=== PATIENT | female | born 1975 | race Caucasian/White ===

== ENCOUNTER 2019-05-01 12:08 | Inpatient (IN) ==
[2019-05-01 12:48] LABS: Immature Granulocytes % 0.4 % (0-4)
[2019-05-01 12:50] LABS: Basophils % 0.3 %; Hematocrit 41.5 % (35.3-44.9); Hemoglobin 13.3 g/dL (11.5-15.4); Immature Platelets 10.2 % (1.1-6.1); Lymphocytes # 0.8 K/mcL (0.6-4.6); Mean Corpuscular Hemoglobin 29.8 pg (28.0-33.3); Mean Platelet Volume 9.9 fL (9.4-12.4); Monocytes % 10.1 %; Neutrophils # 7.8 K/mcL (1.6-8.9); Platelet Count 72 K/mcL (140-400); Red Blood Count 4.46 M/mcL (3.82-4.97); Segmented Neutrophils % 81.2 %; White Blood Count 9.6 K/mcL (4.3-11.1)
[2019-05-01 13:08] LABS: BUN/Creatinine Ratio 9 (6-26); Blood Urea Nitrogen 6 mg/dL (6-20); Calcium 9.5 mg/dL (8.6-10.3); Carbon Dioxide 21 mEq/L (23-29); Chloride 96 mEq/L (98-107); Glucose 108 mg/dL (70-105); Osmolality,Calculated 268 (280-300); Potassium 3.4 mEq/L (3.5-5.1); Sodium 130 mEq/L (136-145); Troponin I < 0.03 ng/mL (< 0.04); eGFR For African Americans > 60 (> 60); eGFR For Non-African Americans > 60 (> 60)
[2019-05-01 13:11] LABS: Bilirubin,Urine Small (Negative); Blood,Urine Trace (Negative); Clarity,Urine Cloudy (Clear); Color,Urine Dark Yellow (Yellow); Glucose,Urine (UA) Normal (Normal); Ketones,Urine >=160 mg/dL (Negative); Leukocyte Esterase,Urine Trace (Negative); Nitrite,Urine Negative (Negative); PH,Urine 5.5 pH Units (5.0-8.0); Protein,Urine 100 mg/dL (Neg-Trace); Specific Gravity,Urine 1.026 (1.010-1.025); Urobilinogen,Urine Normal (Normal)
[2019-05-01 13:15] LABS: Bacteria,Urine Few per hpf (None-Few); Hyaline Casts,Urine None Seen per lpf (None-Few); RBC,Urine 0-3 per hpf (0-3); Squamous Epithelial Cell,Urine Many per lpf (None-Few)
[2019-05-01] MEDS ORDERED: Isovue-370 500 ML BOTTLE IVP ONE (13:15)
[2019-05-01 13:16] LABS: Platelet Estimate Decreased (Normal)
[2019-05-01] MEDS ORDERED: 0.9 % Sodium Chloride 1,000 ML IVC ONE (13:17)
[2019-05-01] MEDS ORDERED: *HR* FentaNYL (PF) 100 MCG/2 ML VIAL IVP ONE ×2 (13:17→14:07)
[2019-05-01 13:37] LABS: Creatine Kinase 365 Units/L (30-223)
[2019-05-01] MEDS ORDERED: Ondansetron 4 MG/2 ML VIAL IVP ONE (14:07)
--- NOTE | 2019-05-01 15:08 | Cardiothoracic Consult Note ---
Date of Encounter: 05/01/19 Time of Encounter: 15:06 Assessment and Plan (1) Pneumothorax on right Current Visit: Yes Status: Acute The assessment and plan as outlined above was discussed with the patient and/or family members who expressed understanding and agreement. All questions were answered. A chest tube will be inserted in the emergency room and the patient will be admitted. We will follow and discontinue the chest tube at the appropriate giovanna e. - History of Present Illness History of present illness: Ms. Mariano is a 43 year old female The patient is a 43-year-old female who fell this morning and sustained a brief loss of consciousness. Workup in the emergency room revealed a CT scan of the head and neck that revealed no injuries. Chest x-ray and CT scan of the chest revealed a moderate right pneumothorax with a right posterior sixth rib fracture. She has no other health problems. No known allergies. Her only medications include occasional Benadryl. She lives with her father and her f riend. She smokes 1-1/2 packs of cigarettes per day AGAINST MEDICAL ADVICE. Rarely drinks alcohol. Review of systems is otherwise negative. Past Med Surg Social Fam HX - Past Medical History Medical history: GERD Psychiatric history: anxiety, depression - Past Surgical History Additional surgical history: tubal, 4 mental plates left elbow, breast augumentation - Social History Smoking Status: Current every day smoker Smokeless Tobacco Status: No Alcohol use: heavy, recent Drug use: none Medications and Allergies Ondansetron ODT [Zofran ODT] 4 mg SL Q6HR PRN #12 tab.rapdis 11/25/18 [Rx] Allergy/AdvReac Type Severity Reaction Status Date / Time No Known Allergies Allergy Verified 05/18/18 16:48 All Systems Review: The remainder of the systems were reviewed and are negative Physical Examination Vital Signs, Last 4 Hours Temp Pulse Resp BP Pulse Ox 05/01/19 14:05 104 18 143/94 100 05/01/19 12:33 98.3 F 114 16 156/95 97 05/01/19 12:09 98.3 F 114 16 156/95 97 Lungs are clear to percussion and auscultation. Heart is in a regular rate and rhythm. General: Conversant HEENT: Atraumatic, Normocephaly Neck: No JVD, Normal carotid pulses Cardiac: Reg Rate and Rhythm, Normal S1 and S2, No Murmur Lungs: Normal Breath Sounds Neuro: Alert and responsive, No focal deficits noted, Cranial nerves intact, Motor nerves intact, Sensory nerves intact Abdomen: Soft, Non-tender Skin: No rashes noted on visualized skin Extremities: No Clubbing, No Cyanosis, No Edema, Normal Pulses Results 05/01/19 12:25 05/01/19 12:25 Lab Results, Last 24 hours 05/01/19 05/01/19 12:25 12:25 WBC 9.6 Hgb 13.3 Hct 41.5 Plt Count 72 L Sodium 130 L Potassium 3.4 L Chloride 96 L Carbon Dioxide 21 L BUN 6 Creatinine 0.66 Glucose 108 H Calcium 9.5 Troponin I < 0.03 Consult Discharge Plan - Plan Referrals: Vane Clemons CNP [Primary Care Provider] -
--- NOTE | 2019-05-01 15:42 | Emergency Department Note ---
Disposition Clinical Impression: Pneumothorax, Elevated CPK, Hyponatremia Disposition: Admitted As Inpatient Condition: Fair Referrals: Vane Clemons CNP [Primary Care Provider] - Forms: ED Satisfaction Letter Time of Disposition: 15:30 General Adult HPI - General Chief complaint: ED Fall Stated complaint: fall, head injury Time Seen by Provider: 05/01/19 12:17 Source: patient, family Mode of arrival: ambulatory Limitations: no limitations Nursing Notes Reviewed: Yes Vital Signs Reviewed: Yes - History of Present Illness HPI Narrative: 43-year-old female presents emergency Department with concerns of pain after fall. Patient states she was walking inside when she tripped and fell on the ground earlier this morning. She was apparently unconscious for several hours, waking up several hours later. Patient denied chest pain or shortness of breath or palpitations prior to the fall. She is unclear as to how long she was on the ground. She denied EtOH or illicit drug use prior to the fall. Patient reports pain to the right ribs and has difficulty in breathing secondary to the pain. Does not take blood thinning medications. Pain Scale: 10 - Related Data Home Medications Medication Instructions Recorded Confirmed No Known Home Drugs 05/01/19 05/01/19 Allergies Allergy/AdvReac Type Severity Reaction Status Date / Time No Known Allergies Allergy Verified 05/18/18 16:48 All systems ED: reviewed and negative except as stated. Review of Systems: As Per HPI Past Medical History - Past Medical History Attestation: Yes The following information was validated with the patient. Source: patient Medical history: Reports: GERD Psychiatric history: Reports: anxiety, depression - Social History Smoking Status: Current every day smoker Smokeless Tobacco Status: No Alcohol use: Reports: heavy, recent Drug use: Reports: none Physical Exam General: Alert and in no acute distress Skin: Warm, dry, intact Head: Normocephalic and atraumatic Neck: Supple, trachea midline and no tenderness Cardiovascular: Tachycardia, no murmur, normal perfusion Respiratory: CTAB, no wheezing, cough, or respiratory distress Musculoskeletal: Normal strength, tenderness to palpation of the right ribs. GI: Soft, nontender, nondistended. Bowel sounds present Neuro: A&O to person, place, time and situation. No focal deficits noted on exam Psychiatric: cooperative and appropriate mood and affect. - General General appearance: alert Course Vital Signs Temperature 98.3 F 05/01/19 12:09 Pulse Rate 114 05/01/19 12:09 Respiratory Rate 16 05/01/19 12:09 Blood Pressure 156/95 05/01/19 12:09 O2 Sat by Pulse Oximetry 97 05/01/19 12:09 Temperature 98.3 F 05/01/19 12:33 Pulse Rate 104 05/01/19 14:05 Respiratory Rate 18 05/01/19 14:05 Blood Pressure 143/94 05/01/19 14:05 O2 Sat by Pulse Oximetry 100 05/01/19 14:05 Oxygen Delivery Oxygen Delivery Non Rebreather Mask Medical Decision Making - MDM Narrative Medical decision making narrative: Patient had pneumothorax on chest x-ray. CT of the chest did not show evidence of acute hemorrhage however he did show a moderate-sized pneumothorax of the right side and a right posterior rib fracture of ribs 6. Patient did not have intrarenal hemorrhage on CT. There is no other acute surgical pathology. Patient has elevation of her CPK but is not 10 times the normal limit. Patient will be admitted to the hospitalist for further care and evaluation. Patient's pain was controlled emergency department with fentanyl. Tachycardia improved with pain medication and IV fluids. She will be admitted to the hospitalist for further care and evaluation. I spoke with the cardiothoracic surgeon who saw the patient in the emergency department. Patient updated regarding imaging and laboratory results. - Medical Records Medical records reviewed: Yes I reviewed the patient's medical records. - Lab Data Lab results reviewed: Yes I reviewed the patient's lab results. Result diagrams: 05/01/19 12:25 05/01/19 12:25 Lab Results 05/01/19 05/01/19 05/01/19 Range/Units 12:25 12:25 12:56 WBC 9.6 (4.3-11.1) K/mcL RBC 4.46 (3.82-4.97) M/mcL Hgb 13.3 (11.5-15.4) g/dL Hct 41.5 (35.3-44.9) % MCV 93.0 (83.0-100.0) fL MCH 29.8 (28.0-33.3) pg MCHC 32.0 (31.6-35.5) g/dL RDW 14.0 (11.5-14.5) % Plt Count 72 L (140-400) K/mcL MPV 9.9 (9.4-12.4) fL Immature Gran % 0.4 (0-4) % Seg Neutrophils % 81.2 % Lymphocytes % 8.0 % Monocytes % 10.1 % Eosinophils % 0.0 % Basophils % 0.3 % Neutrophils # 7.8 (1.6-8.9) K/mcL Lymphocytes # 0.8 (0.6-4.6) K/mcL Monocytes # 1.0 (0.0-1.3) K/mcL Eosinophils # 0.0 (0.0-0.6) K/mcL Basophils # 0.0 (0.0-0.2) K/mcL Platelet Estimate Decreased L (Normal) Immature Plt Fraction 10.2 H (1.1-6.1) % Sodium 130 L (136-145) mEq/L Potassium 3.4 L (3.5-5.1) mEq/L Chloride 96 L (98-107) mEq/L Carbon Dioxide 21 L (23-29) mEq/L BUN 6 (6-20) mg/dL Creatinine 0.66 (0.60-1.20) mg/dL Est GFR ( Amer) > 60 (> 60) Est GFR (Non-Af Amer) > 60 (> 60) BUN/Creatinine Ratio 9 (6-26) Glucose 108 H (70-105) mg/dL Calculated Osmolality 268 L (280-300) Calcium 9.5 (8.6-10.3) mg/dL Creatine Kinase 365 H (30-223) Units/L Troponin I < 0.03 (< 0.04) ng/mL Urine Color Dark Yellow (Yellow) Urine Clarity Cloudy A (Clear) Urine pH 5.5 (5.0-8.0) pH Units Ur Specific [place] 1.026 H (1.010-1.025) Urine Protein 100 H (Neg-Trace) mg/dL Urine Glucose (UA) Normal (Normal) mg/dL Urine Ketones >=160 H (Negative) mg/dL Urine Blood Trace H (Negative) Urine Nitrite Negative (Negative) Urine Bilirubin Small H (Negative) Urine Urobilinogen Normal (Normal) mg/dL Ur Leukocyte Esterase Trace H (Negative) Urine Microscopic RBC 0-3 (0-3) per hpf Urine Microscopic WBC 3-5 H (0-3) per hpf Ur Squamous Epith Cells Many H (None-Few) per lpf Urine Bacteria Few (None-Few) per hpf Hyaline Casts None Seen (None-Few) per lpf Ur Culture Indicated? YES A (NO) Urine Test (Negative) 05/01/19 Range/Units 12:56 WBC (4.3-11.1) K/mcL RBC (3.82-4.97) M/mcL Hgb (11.5-15.4) g/dL Hct (35.3-44.9) % MCV (83.0-100.0) fL MCH (28.0-33.3) pg MCHC (31.6-35.5) g/dL RDW (11.5-14.5) % Plt Count (140-400) K/mcL MPV (9.4-12.4) fL Immature Gran % (0-4) % Seg Neutrophils % % Lymphocytes % % Monocytes % % Eosinophils % % Basophils % % Neutrophils # (1.6-8.9) K/mcL Lymphocytes # (0.6-4.6) K/mcL Monocytes # (0.0-1.3) K/mcL Eosinophils # (0.0-0.6) K/mcL Basophils # (0.0-0.2) K/mcL Platelet Estimate (Normal) Immature Plt Fraction (1.1-6.1) % Sodium (136-145) mEq/L Potassium (3.5-5.1) mEq/L Chloride (98-107) mEq/L Carbon Dioxide (23-29) mEq/L BUN (6-20) mg/dL Creatinine (0.60-1.20) mg/dL Est GFR ( Amer) (> 60) Est GFR (Non-Af Amer) (> 60) BUN/Creatinine Ratio (6-26) Glucose (70-105) mg/dL Calculated Osmolality (280-300) Calcium (8.6-10.3) mg/dL Creatine Kinase (30-223) Units/L Troponin I (< 0.04) ng/mL Urine Color (Yellow) Urine Clarity (Clear) Urine pH (5.0-8.0) pH Units Ur Specific [place] (1.010-1.025) Urine Protein (Neg-Trace) mg/dL Urine Glucose (UA) (Normal) mg/dL Urine Ketones (Negative) mg/dL Urine Blood (Negative) Urine Nitrite (Negative) Urine Bilirubin (Negative) Urine Urobilinogen (Normal) mg/dL Ur Leukocyte Esterase (Negative) Urine Microscopic RBC (0-3) per hpf Urine Microscopic WBC (0-3) per hpf Ur Squamous Epith Cells (None-Few) per lpf Urine Bacteria (None-Few) per hpf Hyaline Casts (None-Few) per lpf Ur Culture Indicated? (NO) Urine Test Negative (Negative) - Radiology Data Radiology results reviewed: Yes I reviewed the patient's radiology results. - EKG Data EKG #1 EKG attestation: Yes I reviewed and interpreted this EKG. EKG results narrative: Sinus tach with a rate of 117 without evidence of STEMI or other dysrhythmia. QTC of 457, QRS of 74.
--- NOTE | 2019-05-01 16:07 | Internal Med History&Physical ---
Date of Encounter: 05/01/19 Time of Encounter: 16:07 Internal Medicine - H&P: HPI History of present illness: Ms. Mariano is a 43 year old female with history of alcohol abuse presents after a fall with LOC. Patient states she was down for a few hours. She had a laceration on her right posterior scalp that had significant bleeding. She also had severe right-sided rib pain. In the ED a chest x-ray and CT chest showed moderate sized pneumothorax and posterior rib fracture. Sodium was low at 130 and CPK was 365, with normal creatinine. She was tachycardic and given IV fluids which improved heart rate. Cardiothroacic Surgery placed a chest tube in the ED without issue. Patient states she drinks 12 beers per day but her insists she drinks 30 beers per day. She denies any hospitalizations for alcohol withdrawal. She denies any illicit drug use. Past Med Surg Social Fam HX - Past Medical History Medical history: GERD Psychiatric history: anxiety, depression - Past Surgical History Additional surgical history: tubal, 4 mental plates left elbow, breast augumentation - Social History Smoking Status: Current every day smoker Smokeless Tobacco Status: No Alcohol use: heavy, recent Drug use: none Internal Medicine - H&P: Meds No Known Home Drugs 05/01/19 [History] Allergy/AdvReac Type Severity Reaction Status Date / Time No Known Allergies Allergy Verified 05/18/18 16:48 All Systems PM: A 10-system review of systems was performed and is negative for pertinent findings except as documented above in the HPI. - Constitutional Vitals: Temp Pulse Resp BP Pulse Ox 98.3 F 104 18 143/94 100 05/01/19 12:33 05/01/19 14:05 05/01/19 14:05 05/01/19 14:05 05/01/19 14:05 General appearance: Present: A&O X 3, no acute distress, underweight, answers questions appropriately Exam: . - Head Additional comments: Dried blood located on right side of posterior scalp. No active bleed noted with any laceration. No bruising or lacerations on face. - Eye Eye exam: Present: PERRL, conjuntiva pink, sclera anicteric Pupils: Present: PERRL - ENT ENT exam: Present: mucous membranes moist - Neck Neck exam general surgery: Present: full ROM, normal inspection. Absent: lymphadenopathy - Respiratory Respiratory exam: Present: CTAB Additional comments: Right chest tube in place. - Cardiovascular Cardiovascular exam: Present: RRR, +S1, +S2. Absent: diastolic murmur, gallop, rubs, systolic murmur - GI/Abdominal GI/Abdominal exam: Present: normal bowel sounds, soft, no peritoneal signs. Absent: distended, tenderness - Extremities Exam Extremities exam: Present: warm, radial pulses palpable and symmetrical. Absent: calf tenderness, cyanotic, pedal edema - Skin Skin exam: Present: dry, intact Internal Med - H&P Results - Labs CBC & Chem 7: 05/01/19 12:25 05/01/19 12:25 Labs: Short CBC 05/01/19 Range/Units 12:25 WBC 9.6 (4.3-11.1) K/mcL Hgb 13.3 (11.5-15.4) g/dL Hct 41.5 (35.3-44.9) % Plt Count 72 L (140-400) K/mcL Neutrophils # 7.8 (1.6-8.9) K/mcL BMP 05/01/19 12:25 Sodium 130 L Potassium 3.4 L Chloride 96 L Carbon Dioxide 21 L BUN 6 Creatinine 0.66 Glucose 108 H Calcium 9.5 Cardiac Enzymes 05/01/19 Range/Units 12:25 Troponin I < 0.03 (< 0.04) ng/mL Urine 05/01/19 Range/Units 12:56 Urine Color Dark Yellow (Yellow) Urine Clarity Cloudy A (Clear) Urine pH 5.5 (5.0-8.0) pH Units Ur Specific [place] 1.026 H (1.010-1.025) Urine Protein 100 H (Neg-Trace) mg/dL Urine Glucose (UA) Normal (Normal) mg/dL - Impressions ITS Impressions Cervical Spine CT 05/01/19 12:18 IMPRESSION: 1. No evidence of cervical spine fracture or listhesis. 2. Right apical pneumothorax. Please refer to separate report for CT of the chest, abdomen, and pelvis obtained concurrently. D/ / 05/01/2019 13:57:41 David Back MD / yue Interpreting Provider: David Back MD Head CT 05/01/19 12:18 IMPRESSION: Negative CT brain with no acute intracranial abnormality. Incidental left sphenoid sinusitis. D/ / Deepti Barnett MD / Deepti Barnett MD Interpreting Provider: Deepti Barnett MD Chest X-Ray 05/01/19 12:19 IMPRESSION: Possible right apical pneumothorax. No displaced rib fracture is identified. Recommend further evaluation with chest CT. D/ / 05/01/2019 12:46:54 Malvin Laureano / yue Interpreting Provider: Malvin Laureano Pelvis X-Ray 05/01/19 12:19 IMPRESSION: No acute bony abnormality. D/ / Cassandra Balderas Cha, MD / Cassandra Balderas Cha, MD Interpreting Provider: Cassandra aBlderas Cha, MD Chest/Abdomen/Pelvis CTA 05/01/19 13:15 IMPRESSION: 1. Moderate size right pneumothorax likely related to a right posterior 6th rib fracture. 2. No evidence of major arterial injury or major organ damage. No evidence of active bleeding. 3. Fatty infiltration of liver. Findings discussed with Dr. Pete on 05/01/2019 at 2:10 p.m. RECOMMENDATIONS: Right chest tube D/ / 05/01/2019 14:21:17 Heather Workman MD / clari Interpreting Provider: Heather Workman MD Chest X-Ray 05/01/19 15:01 IMPRESSION: Interval placement of a right chest tube. Right pneumothorax appears resolved. D/ / 05/01/2019 15:18:25 Steffanie Urias MD / clari Interpreting Provider: Steffanie Urias MD - Assessment and Plan (1) Fall Current Visit: Yes Status: Acute Assessment and plan: Patient hit head and had LOC. CT head was negative for any fracture or bleed. S he denies any loss of bowel/bladder function. Denies dizziness, headache, change in vision, n/v. Alcohol may be contribution. Obtain serum etoh level, INR. Qualifiers: Encounter type: initial encounter Qualified Code(s): W19.XXXA - Unspecified fall, initial encounter (2) Pneumothorax on right Current Visit: Yes Status: Acute Assessment and plan: Secondary to fall. Chest tube placed in ED. Patient hemodynamically stable. Cardiothoracic Surgery following. (3) Alcohol abuse Current Visit: Yes Status: Acute Assessment and plan: Patient is very high risk of withdrawal. Will start CIWA protocol with Librium taper. (4) Elevated CPK Current Visit: Yes Status: Acute Assessment and plan: Secondary to fall. Continue IV fluids. (5) Hyponatremia Current Visit: Yes Status: Acute Assessment and plan: Likely chronic based on history. Continue gentle IV fluid hydration without overcorrection. Recheck BMP in AM. (6) Thrombocytopenia Current Visit: Yes Status: Acute Assessment and plan: Likely due to alcohol withdrawal. (7) DVT prophylaxis Current Visit: Yes Status: Acute Assessment and plan: antiembolic stockings. Patient is fall risk with thrombocytopenia and a laceration on her scalp from fall, and a chest tube inserted for PTX. Will avoid heparin products at this time. - Time Spent With Patient Total time spent is greater than 50% in coordination of care (as documented) at patient's floor/unit and/or counseling patient:
--- NOTE | 2019-05-01 16:34 | Emergency Department Note ---
Disposition Clinical Impression: Pneumothorax, Elevated CPK, Hyponatremia Disposition: Admitted As Inpatient Condition: Fair Time of Disposition: 15:30 General Adult HPI - General Chief complaint: ED Fall Stated complaint: fall, head injury Time Seen by Provider: 05/01/19 12:17 Source: patient, family Mode of arrival: ambulatory Limitations: no limitations - History of Present Illness Pain Scale: 10 - Related Data Home Medications Medication Instructions Recorded Confirmed No Known Home Drugs 05/01/19 05/01/19 Allergies Allergy/AdvReac Type Severity Reaction Status Date / Time No Known Allergies Allergy Verified 05/18/18 16:48 Past Medical History - Past Medical History Medical history: Reports: GERD Psychiatric history: Reports: anxiety, depression - Social History Smoking Status: Current every day smoker Smokeless Tobacco Status: No Alcohol use: Reports: heavy, recent Drug use: Reports: none Physical Exam - General Limitations: no limitations General appearance: alert Course Vital Signs Temperature 98.3 F 05/01/19 12:09 Pulse Rate 114 05/01/19 12:09 Respiratory Rate 16 05/01/19 12:09 Blood Pressure 156/95 05/01/19 12:09 O2 Sat by Pulse Oximetry 97 05/01/19 12:09 Temperature 99.3 F 05/01/19 16:59 Pulse Rate 88 05/01/19 18:14 Respiratory Rate 18 05/01/19 18:14 Blood Pressure 147/93 05/01/19 18:14 O2 Sat by Pulse Oximetry 95 05/01/19 19:59 Oxygen Delivery Oxygen Delivery Room Air Procedures - Chest Tube Chest Tube 1 Chest Tube Location: fifth interspace Size of Tube (cm): 0 (Pneumodart) Chest Tube Prep: betadine prep Local Anesthetic: lidocaine 1% Amount of Anesthesia Used (mL): 5 Incision Made With: #11 blade Post Procedure: sutured to skin, sterile dressing applied Tube Drainage: other (air) Post Procedure CXR?: Yes Patient Tolerated Procedure: Yes Medical Decision Making - MDM Narrative Medical decision making narrative: I participated in this patient's care only by performing the chest tube insertion, see Dr. Wilson and Dr. Pete's notes for further information. - Lab Data Result diagrams: 05/02/19 03:32 05/02/19 03:32 Lab Results 05/01/19 05/01/19 05/01/19 Range/Units 12:25 12:25 12:56 WBC 9.6 (4.3-11.1) K/mcL RBC 4.46 (3.82-4.97) M/mcL Hgb 13.3 (11.5-15.4) g/dL Hct 41.5 (35.3-44.9) % MCV 93.0 (83.0-100.0) fL MCH 29.8 (28.0-33.3) pg MCHC 32.0 (31.6-35.5) g/dL RDW 14.0 (11.5-14.5) % Plt Count 72 L (140-400) K/mcL MPV 9.9 (9.4-12.4) fL Immature Gran % 0.4 (0-4) % Seg Neutrophils % 81.2 % Lymphocytes % 8.0 % Monocytes % 10.1 % Eosinophils % 0.0 % Basophils % 0.3 % Neutrophils # 7.8 (1.6-8.9) K/mcL Lymphocytes # 0.8 (0.6-4.6) K/mcL Monocytes # 1.0 (0.0-1.3) K/mcL Eosinophils # 0.0 (0.0-0.6) K/mcL Basophils # 0.0 (0.0-0.2) K/mcL Platelet Estimate Decreased L (Normal) Immature Plt Fraction 10.2 H (1.1-6.1) % Sodium 130 L (136-145) mEq/L Potassium 3.4 L (3.5-5.1) mEq/L Chloride 96 L (98-107) mEq/L Carbon Dioxide 21 L (23-29) mEq/L BUN 6 (6-20) mg/dL Creatinine 0.66 (0.60-1.20) mg/dL Est GFR ( Amer) > 60 (> 60) Est GFR (Non-Af Amer) > 60 (> 60) BUN/Creatinine Ratio 9 (6-26) Glucose 108 H (70-105) mg/dL Calculated Osmolality 268 L (280-300) Calcium 9.5 (8.6-10.3) mg/dL Creatine Kinase 365 H (30-223) Units/L Troponin I < 0.03 (< 0.04) ng/mL Urine Color Dark Yellow (Yellow) Urine Clarity Cloudy A (Clear) Urine pH 5.5 (5.0-8.0) pH Units Ur Specific [place] 1.026 H (1.010-1.025) Urine Protein 100 H (Neg-Trace) mg/dL Urine Glucose (UA) Normal (Normal) mg/dL Urine Ketones >=160 H (Negative) mg/dL Urine Blood Trace H (Negative) Urine Nitrite Negative (Negative) Urine Bilirubin Small H (Negative) Urine Urobilinogen Normal (Normal) mg/dL Ur Leukocyte Esterase Trace H (Negative) Urine Microscopic RBC 0-3 (0-3) per hpf Urine Microscopic WBC 3-5 H (0-3) per hpf Ur Squamous Epith Cells Many H (None-Few) per lpf Urine Bacteria Few (None-Few) per hpf Hyaline Casts None Seen (None-Few) per lpf Ur Culture Indicated? YES A (NO) Urine Test (Negative) 05/01/19 Range/Units 12:56 WBC (4.3-11.1) K/mcL RBC (3.82-4.97) M/mcL Hgb (11.5-15.4) g/dL Hct (35.3-44.9) % MCV (83.0-100.0) fL MCH (28.0-33.3) pg MCHC (31.6-35.5) g/dL RDW (11.5-14.5) % Plt Count (140-400) K/mcL MPV (9.4-12.4) fL Immature Gran % (0-4) % Seg Neutrophils % % Lymphocytes % % Monocytes % % Eosinophils % % Basophils % % Neutrophils # (1.6-8.9) K/mcL Lymphocytes # (0.6-4.6) K/mcL Monocytes # (0.0-1.3) K/mcL Eosinophils # (0.0-0.6) K/mcL Basophils # (0.0-0.2) K/mcL Platelet Estimate (Normal) Immature Plt Fraction (1.1-6.1) % Sodium (136-145) mEq/L Potassium (3.5-5.1) mEq/L Chloride (98-107) mEq/L Carbon Dioxide (23-29) mEq/L BUN (6-20) mg/dL Creatinine (0.60-1.20) mg/dL Est GFR ( Amer) (> 60) Est GFR (Non-Af Amer) (> 60) BUN/Creatinine Ratio (6-26) Glucose (70-105) mg/dL Calculated Osmolality (280-300) Calcium (8.6-10.3) mg/dL Creatine Kinase (30-223) Units/L Troponin I (< 0.04) ng/mL Urine Color (Yellow) Urine Clarity (Clear) Urine pH (5.0-8.0) pH Units Ur Specific [place] (1.010-1.025) Urine Protein (Neg-Trace) mg/dL Urine Glucose (UA) (Normal) mg/dL Urine Ketones (Negative) mg/dL Urine Blood (Negative) Urine Nitrite (Negative) Urine Bilirubin (Negative) Urine Urobilinogen (Normal) mg/dL Ur Leukocyte Esterase (Negative) Urine Microscopic RBC (0-3) per hpf Urine Microscopic WBC (0-3) per hpf Ur Squamous Epith Cells (None-Few) per lpf Urine Bacteria (None-Few) per hpf Hyaline Casts (None-Few) per lpf Ur Culture Indicated? (NO) Urine Test Negative (Negative) Attestation Statement - Attestation Attestation: I reviewed the residents documentation and agree with the residents assessment and plan of care. I have personally had face to face time with the patient. I personally supervised and was present for the curry/critical portions of the following procedures completed by the resident: Right-sided chest tube
[2019-05-01] MEDS ORDERED: Naloxone 0.4 MG/ML INJ IVP PRN (16:59)
[2019-05-01] MEDS ORDERED: 0.9 % Sodium Chloride 1,000 ML IVC SCH (17:00)
[2019-05-01 17:42] LABS: INR 1.1; Prothrombin Time 12.3 Seconds (9.4-12.1)
[2019-05-01] MEDS ORDERED: *HR* LORazepam 2 MG/ML VIAL IVP PRN (18:23)
[2019-05-01] MEDS: Ondansetron 4 MG/2 ML VIAL IVP PRN (18:29)
[2019-05-01] MEDS: *HR* FentaNYL (PF) 100 MCG/2 ML VIAL IVP PRN (19:54)
[2019-05-02] MEDS: *HR* FentaNYL (PF) 100 MCG/2 ML VIAL IVP PRN (03:40)
[2019-05-02] MEDS: Ondansetron 4 MG/2 ML VIAL IVP PRN (03:56)
[2019-05-02 04:20] LABS: Basophils % 0.7 %; Hematocrit 39.3 % (35.3-44.9); Immature Granulocytes % 0.3 % (0-4)
[2019-05-02 04:21] LABS: Eosinophils % 0.5 %; Hemoglobin 12.6 g/dL (11.5-15.4); Immature Platelets 11.1 % (1.1-6.1); Lymphocytes # 1.6 K/mcL (0.6-4.6); Lymphocytes % 27.7 %; Mean Corpuscular HGB Conc 32.1 g/dL (31.6-35.5); Mean Corpuscular Hemoglobin 30.8 pg (28.0-33.3); Mean Corpuscular Volume 96.1 fL (83.0-100.0); Mean Platelet Volume 10.7 fL (9.4-12.4); Monocytes # 0.6 K/mcL (0.0-1.3); Monocytes % 9.9 %; Neutrophils # 3.6 K/mcL (1.6-8.9); Red Blood Count 4.09 M/mcL (3.82-4.97); Red Cell Distribution Width 13.9 % (11.5-14.5); Segmented Neutrophils % 60.9 %; White Blood Count 5.9 K/mcL (4.3-11.1)
[2019-05-02 04:33] LABS: Platelet Count 66 K/mcL (140-400)
[2019-05-02 04:41] LABS: BUN/Creatinine Ratio 7 (6-26); Blood Urea Nitrogen 4 mg/dL (6-20); Carbon Dioxide 26 mEq/L (23-29); Chloride 101 mEq/L (98-107); Glucose 86 mg/dL (70-105); Osmolality,Calculated 274 (280-300); Potassium 3.5 mEq/L (3.5-5.1); Sodium 134 mEq/L (136-145); eGFR For African Americans > 60 (> 60); eGFR For Non-African Americans > 60 (> 60)
[2019-05-02] MEDS: *HR* LORazepam 2 MG/ML VIAL IVP PRN ×6 (06:43→23:12)
[2019-05-02] MEDS: Thiamine (B-1) 100 MG TABLET PO SCH (08:40)
[2019-05-02] MEDS: Folic Acid 1 MG TABLET PO SCH (08:40)
[2019-05-02] MEDS: Vitamin B Complex/Vit C/Vit E 1 EACH TABLET PO SCH (08:40)
--- NOTE | 2019-05-02 10:45 | Internal Med Progress Note ---
Hospitalist Progress Note - Encounter Date of Encounter: 05/02/19 Time of Encounter: 10:43 - Subjective Interval History: the patient was seen and examined at bedside has has tremor and anxiety states got sudden LOC with lip bitting, has no hx of seizure before denies cp or sob - Exam Vitals: Temp Pulse Resp BP Pulse Ox 97.7 F 79 16 124/88 95 05/02/19 06:33 05/02/19 06:33 05/02/19 06:33 05/02/19 06:33 05/02/19 06:33 Exam: .Physical examination: Gen.: Patient is alert and oriented, not in respiratory distress of pain, has hands tremors HEENT: perrla , EOMI, no neck mass, supple neck Heart: S1 and S2 enrike, normal sinus rhythm, no cardiac murmur no gallop rhythm Chest: , bilateral rhonchi , decreased breathing bilaterally chest tube noted Abdomen: Soft nontender nondistended positive bowel sounds, no organomegaly Extremities: No pitting edema, peripheral pulses palpable, no cyanosis tenderness Neuro: Able to move all 4 limbs, DVT Prophylaxis: heparin - Summary of Assessment and Plan Summary of Assessment and Plan: (1) Fall Current Visit: Yes Status: Acute Assessment and plan: Patient hit head and had LOC. culd be seizure alcohol withdrawal , patient states did not drink alcohol more than [address] head was negative for any fracture or bleed. i did consult neurologist and order electrocardiogram o r/o valvular abnormalities Qualifiers: Encounter type: initial encounter Qualified Code(s): W19.XXXA - Unspecified fall, initial encounter (2) Pneumothorax on right Current Visit: Yes Status: Acute Assessment and plan: Secondary to fall. Chest tube placed in ED. Patient hemodynamically stable. Cardiothoracic Surgery following. (3) Alcohol abuse Current Visit: Yes Status: Acute Assessment and plan: Patient is very high risk of withdrawal. continue on CIWA protocol with Librium taper. on thiamin and folic acid (4) Elevated CPK Current Visit: Yes Status: Acute Assessment and plan: Secondary to fall. got fluid (5) Hyponatremia Current Visit: Yes Status: Acute Assessment and plan: Likely chronic based on history. serum Na up to 134 from 130 due to alcohol consumption (6) Thrombocytopenia Current Visit: Yes Status: Acute Assessment and plan: Likely due to alcohol consumption check US abdomen to r/o liver cirrhosis check hepatic panel inr 1.1 (7) DVT prophylaxis Current Visit: Yes Status: Acute Assessment and plan: scd. Patient is fall risk with thrombocytopenia and a laceration on her scalp from fall, and a chest tube inserted for PTX. avoid heparin products at this time. - Time Spent with Patient Total time spent is greater than 50% in coordination of care (as documented) at patient's floor/unit and/or counseling patient: Internal Medicine: Result - Labs CBC & Chem 7: 05/02/19 03:32 05/02/19 03:32 Labs: Short CBC 05/01/19 05/02/19 Range/Units 12:25 03:32 WBC 9.6 5.9 (4.3-11.1) K/mcL Hgb 13.3 12.6 (11.5-15.4) g/dL Hct 41.5 39.3 (35.3-44.9) % Plt Count 72 L 66 L (140-400) K/mcL Neutrophils # 7.8 3.6 (1.6-8.9) K/mcL BMP 05/01/19 05/02/19 12:25 03:32 Sodium 130 L 134 L Potassium 3.4 L 3.5 Chloride 96 L 101 Carbon Dioxide 21 L 26 BUN 6 4 L Creatinine 0.66 0.61 Glucose 108 H 86 Calcium 9.5 9.0 Cardiac Enzymes 05/01/19 Range/Units 12:25 Troponin I < 0.03 (< 0.04) ng/mL Urine 05/01/19 Range/Units 12:56 Urine Color Dark Yellow (Yellow) Urine Clarity Cloudy A (Clear) Urine pH 5.5 (5.0-8.0) pH Units Ur Specific T[place] 1.026 H (1.010-1.025) Urine Protein 100 H (Neg-Trace) mg/dL Urine Glucose (UA) Normal (Normal) mg/dL - ABG Interpretation ABG results: PT/INR, D-dimer PT 12.3 Seconds (9.4-12.1) H 05/01/19 17:01 - Impressions Impressions Cervical Spine CT 05/01/19 12:18 IMPRESSION: 1. No evidence of cervical spine fracture or listhesis. 2. Right apical pneumothorax. Please refer to separate report for CT of the chest, abdomen, and pelvis obtained concurrently. D/ / 05/01/2019 13:57:41 David Back MD / yue Interpreting Provider: David Back MD Head CT 05/01/19 12:18 IMPRESSION: Negative CT brain with no acute intracranial abnormality. Incidental left sphenoid sinusitis. D/ / Deepti Barnett MD / Deepti Barnett MD Interpreting Provider: Deepti Barnett MD Chest X-Ray 05/01/19 12:19 IMPRESSION: Possible right apical pneumothorax. No displaced rib fracture is identified. Recommend further evaluation with chest CT. Findings discussed with Dr. Pete by Dr. Laureano on 05/01/2019 at 1241 hours D/ / 05/01/2019 12:46:54 Malvin Laureano / yue Interpreting Provider: Malvin Laureano Pelvis X-Ray 05/01/19 12:19 IMPRESSION: No acute bony abnormality. D/ / Cassandra Balderas Cha, MD / Cassandra Balderas Cha, MD Interpreting Provider: Cassandra Balderas Cha, MD Chest/Abdomen/Pelvis CTA 05/01/19 13:15 IMPRESSION: 1. Moderate size right pneumothorax likely related to a right posterior 6th rib fracture. 2. No evidence of major arterial injury or major organ damage. No evidence of active bleeding. 3. Fatty infiltration of liver. Findings discussed with Dr. Pete on 05/01/2019 at 2:10 p.m. RECOMMENDATIONS: Right chest tube D/ / 05/01/2019 14:21:17 Heather Workman MD / [email or web address] Interpreting Provider: Heather Workman MD Chest X-Ray 05/01/19 15:01 IMPRESSION: Interval placement of a right chest tube. Right pneumothorax appears resolved. D/ / 05/01/2019 15:18:25 Steffanie Urias MD / clari Interpreting Provider: Steffanie Urias MD Consult Discharge Plan - Plan Referrals: Vane Clemons CNP [Primary Care Provider] -
[2019-05-02 12:38] LABS: Albumin 3.9 g/dL (3.5-5.7); Albumin/Globulin Ratio 1.3 (1.1-2.2); Bilirubin,Direct 0.4 mg/dL (0.0-0.2); Bilirubin,Indirect 0.6 mg/dL (0.0-1.2); Total Protein 6.9 g/dL (6.4-8.9)
--- NOTE | 2019-05-02 12:57 | Electrocardiograph Report ---
[address] [address] Test Date: 2019-05-01 Pat Name: Mary Lou Mariano Department: EXAM10 Room: [facility] Gender: Security System Technician: : 1975 Requested By: Chucky Pete Order Number: [id number] Reading MD: True Ruffin Measurements Intervals [place] Rate: 117 P: 93 MO: 167 QRS: 86 QRSD: 74 T: 47 QT: 327 QTc: 457 Interpretive Statements Sinus tachycardia Possbile right atrial enlargement Electronically Signed On 05-02-2019 12:56:08 EDT by True Ruffin
[2019-05-02] MEDS ORDERED: *HR* Heparin 5,000 UNIT/ML VIAL SQ SCH (14:00)
--- NOTE | 2019-05-02 15:45 | Cardiothoracic Progress Note ---
Date of Encounter: 05/02/19 Time of Encounter: 15:32 - Assessment and plan (1) Pneumothorax on right Current Visit: Yes Status: Acute The patient is a 43-year-old lady who was admitted with respiratory distress secondary to a traumatic right pneumothorax. A chest tube was placed in the emergency department. Chest tube was attached a Heimlich valve which was then placed in series with a Pleur-evac. I removed the Heimlich valve and placed the chest tube directly to the Pleur-evac. A small, intermittent air leak is noted. The chest tube should remain on suction. The chest x-ray will be repeated in the morning. The assessment and plan as outlined above was discussed with the patient and/or family members who expressed understanding and agreement. All questions were answered. - Subjective Interval history: The patient has become increasingly agitated during the day. The hospitalist believes that she is beginning to exhibit signs of alcohol withdrawn. She is in no respiratory distress. Oxgyen Flow Rate Oxygen Flow Rate (LPM) 15 Clinical Data, last 8 Hours Output, Chest Tube Drainage 10 Amount [Right Anterior Chest # 1] Weight 04/30/19 05/01/19 05/02/19 23:59 23:59 23:59 Weight 54.9 kg 54.9 kg - Physical Examination General: Conversant Neck: No JVD, Normal carotid pulses Cardiac: Reg Rate and Rhythm, Normal S1 and S2, No Murmur Incision: No signs of infection, Dry/intact dressing Chest tubes: Minimal drainage, Air leak Lungs: Normal Breath Sounds, No Wheeze, Rales, Rhonchi Neuro: Alert and responsive, No focal deficits noted Vascular: Normal capillary refill Extremities: No Clubbing, No Cyanosis, No Edema - Labs 05/02/19 03:32 05/02/19 03:32 Lab Results, Last 24 hours 05/01/19 05/02/19 05/02/19 17:01 03:32 03:32 WBC 5.9 Hgb 12.6 Hct 39.3 Plt Count 66 L INR 1.1 Sodium 134 L Potassium 3.5 Chloride 101 Carbon Dioxide 26 BUN 4 L Creatinine 0.61 Glucose 86 Calcium 9.0 Total Bilirubin AST ALT Alkaline Phosphatase 05/02/19 11:10 WBC Hgb Hct Plt Count INR Sodium Potassium Chloride Carbon Dioxide BUN Creatinine Glucose Calcium Total Bilirubin 1.0 AST 43 H ALT 23 Alkaline Phosphatase 74 Consult Discharge Plan - Plan Referrals: Vane Clemons, SETH [Primary Care Provider] -
--- NOTE | 2019-05-02 15:56 | Neurology - Consult Note ---
<Rocky Barillas - Last Filed: 05/02/19 15:47> Date of Encounter: 05/02/19 Time of Encounter: 15:47 Assessment and Plan (1) Alcohol abuse Current Visit: Yes Status: Acute (2) Fall Current Visit: Yes Status: Acute Qualifiers: Encounter type: initial encounter Qualified Code(s): W19.XXXA - Unspecified fall, initial encounter (3) Syncope Current Visit: Yes Status: Acute Neurology has been consulted with syncope query seizures presents s/p sudden syncope; LOC x2 hours, confused on awakening with urinary and fecal incontinence H/O significant ETOH abuse 30 drinks daily. Denies drinking day of event but ETOH was [address] head without acute findings, CT Cervical spine unremarkable EKG on admission reveals findings of sinus tach without ST-T wave changes concerning for ischemia Troponin negative less than 0.03; vitals have been stable throughout stay; does not appear dehydrated Low suspicion for seizure activity; no prior h/o seizures and does not Describe seizure activity I suspect that this was 2/2 ETOH intoxication but syncope r/o recommended Neurologically she is intact without any focal or laterlizing findings. She zayas s appear to be in early withdrawal with agitation and confusion and she is encephalopathic. She currently has b/l hand tremors and is soiling herself. PLAN: -We will get an EEG to r/o seizures given h/o ETOH abuse. Also risk for withdrawal seizures since she reports her last drink was the day before the event -refrain from starting antiepileptic drugs -agree with seizure precautions in the meantime -Recommending syncopal w/u including echocardiogram and a carotid duplex exam - - r/o cardiac causes of syncope -c/w telemetry monitoring -Agree with CIWA protocol; has the propensity to go into full withdrawal -continue thiamine and folate History of Present Illness Chief complaint: syncope query seizures HPI: Ms. Mariano is a 43 year old female with a PMH significant for ETOH abuse, tobacco abuse, anxiety and depression who presents s/p syncope resulting in a rt posterior scalp laceration. Additionally, the fall resulted in rib fractures and a pneumothorax requiring a chest tube. Neurology has been consulted for sync ope query seizures. She denies any h/o seizures of syncope but she admits to ETOH ingestion the night before the syncopal event. She reports that she awoke at 4:30 pm and attempted to go to her garden. While walking to her garden she was syncopal. She reports that she awoke around 7pm and was confused and incontinent of stool and urine and notes that she bit her lip. She denies drinking the day of the event but her ETOH level on admission was high as 58. Her significant other has been on record of stating that she drinks approximately 30 alcoholic beverages daily. She denies any prodrome of symptoms prior to LOC, further, she denies any visual changes, facial asymmetry, dysphagia, dysarthria, or unilateral weakness or parasthesias. She is unsure if there was tonic-clonic activity as these events were unwitnessed. She was hyponatremic with a Na of 130 on admission which is now 134. CK was mildly elevated at 365 but the rest of the labs were within expected range. Currently she is somewhat agitated and hesistant to engage in conversation. She appears to be in early withdrawal and is complaining of b/l hand tremors. She denies any SI/HI, or auditory/visual hallucinations. Past Med Surg Social Fam HX - Past Medical History Medical history: GERD Psychiatric history: anxiety, depression - Past Surgical History Additional surgical history: tubal, 4 mental plates left elbow, breast augumentation - Social History Smoking Status: Current every day smoker Smokeless Tobacco Status: No Alcohol use: heavy, recent Drug use: none - Family History Grandfather Hx Family Cardiac Disorders: Yes ([place]) Medications and Allergies No Known Home Drugs 05/01/19 [History] Allergy/AdvReac Type Severity Reaction Status Date / Time No Known Allergies Allergy Verified 05/02/19 14:17 All Systems: The remainder of the systems were reviewed and are negative Review of Systems: REVIEW OF SYSTEMS NEUROLOGIC: Negative for any blurry vision, blind spots, double vision, facial asymmetry, dysphagia, dysarthria, hemiparesis, hemisensory deficits, vertigo, at axia, paralysis, tingling, numbness, unilateral weakness or numbness/tingling POSITIVE- syncope with urinary and fecal incontinence PSYCH: POSITIVE- agitation/irritability, anxiety, depression, ETOH abuse. Denies any hallucinations or SI/HI HEENT: POSITIVE - head trauma s/p fall resulting in a laceration as mentioned in the HPI CARDIAC: Negative for any chest pain, dyspnea, peripheral edema or palpitations Physical Examination - Vital Signs Vital Signs: Initial Vital Signs Temp Pulse Resp BP Pulse Ox 98.3 F 114 16 156/95 97 05/01/19 12:09 05/01/19 12:09 05/01/19 12:05/01/19 12:05/01/19 12:09 - Exam Exam: Examination: General Examination: *CONSTITUTIONAL: Alert tp self only, mildly agitated and appears to be in early ETOH withdrawal *GENERAL APPEARANCE OF PATIENT appears older than stated age with poor hygiene *EYES: pupils equal, round, reactive to light and accommodation, conjunctiva are injected *CARDIOVASCULAR: RRR, no peripheral edema, distal temperature normal, dorsalis pedis pulses normal. Refer to vital signs *PSYCH: agitated * MUSCULOSKELETAL: *GAIT AND STATION: Deferred; d/t falls risk *ASSESSMENT OF MUSCLE STRENGTH IN THE UPPER AND LOWER EXTREMITIES bilateral deltoid, bicep, tricep, women's garment fitter strength, hip flexors ,anterior tibialis, dorsoflexion of the foot 4/5 *MUSCLE TONE IN THE UPPER AND LOWER EXTREMITIES B/L hand tremors presents likely 2/2 early withdrawal sx. No abnormal movements, fasciculations or atrophy identified. Neurological: *ORIENTATION to person and somewhat situation *LANGUAGE AND FUNCTION no significant aphasia or dysarthia was noted. *ATTENTION AND CONCENTRATION are abnormal and she is easily distracted *LANGUAGE FUNCTION no significant aphasia or dysarthia was noted. *FUND OF KNOWLEDGE aware of current events, past history, vocabulary *MENTAL attention span and concentration abnormal and she requires redirection. She is hesitant to engage in conversation *CN II optic fundi were normal, no papilledema noted. *CN III,IV, PERRLA extraocular eye movements were full, no nystagmus and no ptosis noted. *CN V shows normal sensation and jaw opens symmetrically. *CN VII shows normal facial movement symmetrically, upper and lower bilaterally. *CN VIII shows no significant hearing loss on exam *CN IX-Xpalate elevated symmetrically *CN XI normal strength in the sternocleidomastoid muscles, symmetrical shoulder shrugging. *CN XII tongue protruded in the midline, with normal strength and movement. *SENSORY EXAMINATION light touch intact *REFLEXES: deep tendon reflexes were 1/4 diffusely, no pathological reflexes were noted. *CEREBELLAR TESTING dysmetria with finger to nose *PAIN LEVEL 0/10 Results - Laboratory Findings CBC and BMP: 05/02/19 03:32 05/02/19 03:32 Abnormal lab findings: Abnormal lab results Plt Count 66 K/mcL (140-400) L 05/02/19 03:32 Platelet Estimate Decreased (Normal) L 05/01/19 12:25 Immature Plt Fraction 11.1 % (1.1-6.1) H 05/02/19 03:32 PT 12.3 Seconds (9.4-12.1) H 05/01/19 17:01 Sodium 134 mEq/L (136-145) L 05/02/19 03:32 Potassium 3.4 mEq/L (3.5-5.1) L 05/01/19 12:25 Chloride 96 mEq/L (98-107) L 05/01/19 12:25 Carbon Dioxide 21 mEq/L (23-29) L 05/01/19 12:25 BUN 4 mg/dL (6-20) L 05/02/19 03:32 Glucose 108 mg/dL (70-105) H 05/01/19 12:25 Calculated Osmolality 274 (280-300) L 05/02/19 03:32 Direct Bilirubin 0.4 mg/dL (0.0-0.2) H 05/02/19 11:10 AST 43 Units/L (13-39) H 05/02/19 11:10 Creatine Kinase 365 Units/L (30-223) H 05/01/19 12:25 Urine Clarity Cloudy (Clear) A 05/01/19 12:56 Ur Specific Turner 1.026 (1.010-1.025) H 05/01/19 12:56 Urine Protein 100 mg/dL (Neg-Trace) H 05/01/19 12:56 Urine Ketones >=160 mg/dL (Negative) H 05/01/19 12:56 Urine Blood Trace (Negative) H 05/01/19 12:56 Urine Bilirubin Small (Negative) H 05/01/19 12:56 Ur Leukocyte Esterase Trace (Negative) H 05/01/19 12:56 Urine Microscopic WBC 3-5 per hpf (0-3) H 05/01/19 12:56 Ur Squamous Epith Cells Many per lpf (None-Few) H 05/01/19 12:56 Ur Culture Indicated? YES (NO) A 05/01/19 12:56 Ethyl Alcohol 58 mg/dL (Less than 10) H 05/01/19 17:01 - Diagnostic Findings Additional findings: CT/CT head/brain wo con IMPRESSION: Negative CT brain with no acute intracranial abnormality. Incidental left sphenoid sinusitis. CT/CT cervical spine wo con IMPRESSION: 1. No evidence of cervical spine fracture or listhesis. 2. Right apical pneumothorax. Please refer to separate report for CT of the chest, abdomen, and pelvis obtained concurrently. Consult Discharge Plan - Plan Referrals: Vane Clemons CNP [Primary Care Provider] - <Ousmane Mccollum - Last Filed: 05/02/19 18:14> Date of Encounter: 05/02/19 Assessment and Plan (1) Alcohol abuse Current Visit: Yes Status: Acute (2) Fall Current Visit: Yes Status: Acute Qualifiers: Encounter type: initial encounter Qualified Code(s): W19.XXXA - Unspecified fall, initial encounter (3) Syncope Current Visit: Yes Status: Acute I have personally performed a [id number] assessment of the patient and have re viewed the PA/SALICYLIC ACID BLENDER note. My impressions are as follows: I did speak with her son, and also discussed the case with the VARIETY LATHE OPERATOR. I agree with his assessment and plan as stated above. I largely suspect ethanol intoxication was the true etiology for the fall, however I am not convinced that she truly had an epileptic seizure. There is no evidence of History of Present Illness HPI: The chart was reviewed, the patient was seen and examined independently. Case was discussed with the VARIETY LATHE OPERATOR. I agree with his documentation of the history of present illness as stated above. I did review the CT scan and intensity slightly evidence of a small right occipital scalp contusion however there is no evidence of brain contusion. I agree with EEG and medical management regarding alcohol intoxication and potential withdrawal. She does not have a history of a previous seizures, however I agree that consideration of syncope and/or seizure is reasonable. We will reevaluate her tomorrow. ROS unobtainable: due to mental status (Patient still groggy.) All Systems: The remainder of the systems were reviewed and are negative Physical Examination - Vital Signs Vital Signs: Initial Vital Signs Temp Pulse Resp BP Pulse Ox 98.3 F 114 16 156/95 97 05/01/19 12:09 05/01/19 12:09 05/01/19 12:09 05/01/19 12:09 05/01/19 12:09 - Exam Exam: I have personally performed a [id number]-dyuw assessment of the patient and have reviewed the PA/SALICYLIC ACID BLENDER note. My impressions are as follows: I agree with the neurologic examination as documented above. Results - Laboratory Findings CBC and BMP: 05/02/19 03:32 05/02/19 03:32 Abnormal lab findings: Abnormal lab results Plt Count 66 K/mcL (140-400) L 05/02/19 03:32 Platelet Estimate Decreased (Normal) L 05/01/19 12:25 Immature Plt Fraction 11.1 % (1.1-6.1) H 05/02/19 03:32 PT 12.3 Seconds (9.4-12.1) H 05/01/19 17:01 Sodium 134 mEq/L (136-145) L 05/02/19 03:32 Potassium 3.4 mEq/L (3.5-5.1) L 05/01/19 12:25 Chloride 96 mEq/L (98-107) L 05/01/19 12:25 Carbon Dioxide 21 mEq/L (23-29) L 05/01/19 12:25 BUN 4 mg/dL (6-20) L 05/02/19 03:32 Glucose 108 mg/dL (70-105) H 05/01/19 12:25 Calculated Osmolality 274 (280-300) L 05/02/19 03:32 Direct Bilirubin 0.4 mg/dL (0.0-0.2) H 05/02/19 11:10 AST 43 Units/L (13-39) H 05/02/19 11:10 Creatine Kinase 365 Units/L (30-223) H 05/01/19 12:25 Urine Clarity Cloudy (Clear) A 05/01/19 12:56 Ur Specific Turner 1.026 (1.010-1.025) H 05/01/19 12:56 Urine Protein 100 mg/dL (Neg-Trace) H 05/01/19 12:56 Urine Ketones >=160 mg/dL (Negative) H 05/01/19 12:56 Urine Blood Trace (Negative) H 05/01/19 12:56 Urine Bilirubin Small (Negative) H 05/01/19 12:56 Ur Leukocyte Esterase Trace (Negative) H 05/01/19 12:56 Urine Microscopic WBC 3-5 per hpf (0-3) H 05/01/19 12:56 Ur Squamous Epith Cells Many per lpf (None-Few) H 05/01/19 12:56 Ur Culture Indicated? YES (NO) A 05/01/19 12:56 Ethyl Alcohol 58 mg/dL (Less than 10) H 05/01/19 17:01
[2019-05-03 05:23] LABS: Mean Platelet Volume 10.8 fL (9.4-12.4)
[2019-05-03 05:25] LABS: Hematocrit 36.7 % (35.3-44.9); Hemoglobin 11.8 g/dL (11.5-15.4); Immature Platelets 9.8 % (1.1-6.1); Mean Corpuscular HGB Conc 32.2 g/dL (31.6-35.5); Mean Corpuscular Hemoglobin 30.1 pg (28.0-33.3); Mean Corpuscular Volume 93.6 fL (83.0-100.0); Red Blood Count 3.92 M/mcL (3.82-4.97); Red Cell Distribution Width 13.8 % (11.5-14.5); White Blood Count 5.7 K/mcL (4.3-11.1)
[2019-05-03 05:48] LABS: Alanine Aminotransferase 21 Units/L (7-52); Albumin 3.6 g/dL (3.5-5.7); Albumin/Globulin Ratio 1.2 (1.1-2.2); Alkaline Phosphatase 72 Units/L (34-104); Aspartate Amino Transferase 41 Units/L (13-39); BUN/Creatinine Ratio 6 (6-26); Bilirubin,Total 1.1 mg/dL (0.3-1.0); Blood Urea Nitrogen 4 mg/dL (6-20); Calcium 9.2 mg/dL (8.6-10.3); Carbon Dioxide 25 mEq/L (23-29); Chloride 95 mEq/L (98-107); Glucose 101 mg/dL (70-105); Magnesium 1.7 mg/dL (1.6-2.6); Osmolality,Calculated 275 (280-300); Phosphorous 3.8 mg/dL (2.7-4.5); Potassium 3.1 mEq/L (3.5-5.1); Sodium 134 mEq/L (136-145); Total Protein 6.6 g/dL (6.4-8.9); eGFR For African Americans > 60 (> 60); eGFR For Non-African Americans > 60 (> 60)
--- NOTE | 2019-05-03 06:35 | Cardiothoracic Progress Note ---
Date of Encounter: 05/03/19 Time of Encounter: 06:17 - Assessment and plan (1) Pneumothorax on right Current Visit: Yes Status: Acute The patient is a 43-year-old lady who was admitted with respiratory distress secondary to a traumatic right pneumothorax. A chest tube was placed in the emergency department. Chest tube was attached a Heimlich valve which was then placed in series with a Pleur-evac. I removed the Heimlich valve and placed the chest tube directly to the Pleur-evac. A small, intermittent air leak is noted. The chest tube should remain on suction. The chest x-ray will be repeated in the morning. The assessment and plan as outlined above was discussed with the patient and/or family members who expressed understanding and agreement. All questions were answered. - Subjective Interval history: The patient has become increasingly agitated today, though it is more appropriate this morning.. The hospitalist believes that she is beginning to exhibit signs of alcohol withdrawn. She is in no respiratory distress. Vital Signs, Last 4 Hours Temp Pulse Resp BP Pulse Ox 05/03/19 03:48 98.3 F 114 20 142/99 97 Oxgyen Flow Rate Oxygen Flow Rate (LPM) 15 Clinical Data, last 8 Hours Output, Urine Amount 180 Output, Urine Amount 150 Weight 05/01/19 05/02/19 05/03/19 23:59 23:59 23:59 Weight 54.9 kg 54.9 kg - Physical Examination General: Conversant, No Apparent Distress Neck: No JVD, Normal carotid pulses Cardiac: Reg Rate and Rhythm, Normal S1 and S2, No Murmur Chest tubes: Minimal drainage, Air leak Lungs: Normal Breath Sounds, No Wheeze, Rales, Rhonchi Neuro: Alert and responsive, No focal deficits noted Vascular: Normal capillary refill Extremities: No Clubbing, No Cyanosis, No Edema - Labs 05/03/19 04:49 05/03/19 04:49 Lab Results, Last 24 hours 05/02/19 05/03/19 05/03/19 11:10 04:49 04:49 WBC 5.7 Hgb 11.8 Hct 36.7 Plt Count 67 L Sodium 134 L Potassium 3.1 L Chloride 95 L Carbon Dioxide 25 BUN 4 L Creatinine 0.62 Glucose 101 Calcium 9.2 Magnesium 1.7 Total Bilirubin 1.0 1.1 H AST 43 H 41 H ALT 23 21 Alkaline Phosphatase 74 72 Consult Discharge Plan - Plan Referrals: Vane Clemons CNP [Primary Care Provider] -
[2019-05-03 07:55] LABS: Creatine Kinase 579 Units/L (30-223)
[2019-05-03] MEDS: Thiamine (B-1) 100 MG TABLET PO SCH (08:40)
[2019-05-03] MEDS: Folic Acid 1 MG TABLET PO SCH (08:40)
[2019-05-03] MEDS: Vitamin B Complex/Vit C/Vit E 1 EACH TABLET PO SCH (08:40)
[2019-05-03] MEDS: *HR* LORazepam 2 MG/ML VIAL IVP PRN ×3 (08:40→17:40)
--- NOTE | 2019-05-03 08:41 | Internal Med Progress Note ---
Hospitalist Progress Note - Encounter Date of Encounter: 05/03/19 Time of Encounter: 08:39 - Subjective Interval History: the patient was seen and examined at bedside feels well, no SOB still had right sided chest pain less hand tremor today chest tube still in place, CXR show no pneumothorax - Exam Vitals: Temp Pulse Resp BP Pulse Ox 97.9 F 98 16 117/99 97 05/03/19 07:41 05/03/19 07:41 05/03/19 07:41 05/03/19 07:41 05/03/19 03:48 Exam: .Physical examination: Gen.: Patient is alert and oriented, not in respiratory distress of pain, has hands tremors HEENT: perrla , EOMI, no neck mass, supple neck Heart: S1 and S2 enrike, normal sinus rhythm, no cardiac murmur no gallop rhythm Chest: , bilateral rhonchi , decreased breathing bilaterally chest tube noted Abdomen: Soft nontender nondistended positive bowel sounds, no organomegaly Extremities: No pitting edema, peripheral pulses palpable, no cyanosis tenderness Neuro: Able to move all 4 limbs, DVT Prophylaxis: scd - Summary of Assessment and Plan Summary of Assessment and Plan: (1) Fall Current Visit: Yes Status: Acute Assessment and plan: Patient hit head and had LOC. could be seizure alcohol withdrawal versus syncope CT head was negative for any fracture or bleed. i did consult neurologist who recommend EEG and order electrocardiogram and carotid Doppler to evaluate for syncope echo show ef 60% unremarkable carotid doppler still pending EEG pending Qualifiers: Encounter type: initial encounter Qualified Code(s): W19.XXXA - Unspecified fall, initial encounter (2) Pneumothorax on right Current Visit: Yes Status: Acute Assessment and plan: Secondary to fall. Chest tube placed in ED. Patient hemodynamically stable. Cardiothoracic Surgery following. CXR today show no pneumothorax (3) Alcohol abuse Current Visit: Yes Status: Acute Assessment and plan: Patient is very high risk of withdrawal. continue on CIWA protocol with Librium taper. on thiamin and folic acid (4) Elevated CPK Current Visit: Yes Status: Acute Assessment and plan: Secondary to fall. check another CK up to 579 started on iv fluid (5) Hyponatremia Current Visit: Yes Status: Acute Assessment and plan: Likely chronic based on history. serum Na up to 134 from 130 due to alcohol consumption (6) Thrombocytopenia Current Visit: Yes Status: Acute Assessment and plan: Likely due to alcohol consumption US abdomen show fatty liver check hepatic panel inr 1.1 (7) DVT prophylaxis Current Visit: Yes Status: Acute Assessment and plan: scd. Patient is fall risk with thrombocytopenia and a laceration on her scalp from fall, and a chest tube inserted for PTX. avoid heparin products at this time. - Time Spent with Patient Total time spent is greater than 50% in coordination of care (as documented) at patient's floor/unit and/or counseling patient: Internal Medicine: Result - Labs CBC & Chem 7: 05/03/19 04:49 05/03/19 04:49 Labs: Short CBC 05/03/19 Range/Units 04:49 WBC 5.7 (4.3-11.1) K/mcL Hgb 11.8 (11.5-15.4) g/dL Hct 36.7 (35.3-44.9) % Plt Count 67 L (140-400) K/mcL BMP 05/03/19 04:49 Sodium 134 L Potassium 3.1 L Chloride 95 L Carbon Dioxide 25 BUN 4 L Creatinine 0.62 Glucose 101 Calcium 9.2 Liver Function 05/02/19 05/03/19 Range/Units 11:10 04:49 Total Bilirubin 1.0 1.1 H (0.3-1.0) mg/dL Direct Bilirubin 0.4 H (0.0-0.2) mg/dL AST 43 H 41 H (13-39) Units/L ALT 23 21 (7-52) Units/L Alkaline Phosphatase 74 72 (34-104) Units/L Albumin 3.9 3.6 (3.5-5.7) g/dL - ABG Interpretation ABG results: PT/INR, D-dimer PT 12.3 Seconds (9.4-12.1) H 05/01/19 17:01 - Impressions Impressions Cervical Spine CT 05/01/19 12:18 IMPRESSION: 1. No evidence of cervical spine fracture or listhesis. 2. Right apical pneumothorax. Please refer to separate report for CT of the chest, abdomen, and pelvis obtained concurrently. D/ / 05/01/2019 13:57:41 David Back MD / [email or web address] Interpreting Provider: David Back MD Echocardiogram 05/02/19 10:44 Impressions: LVEF 60-65%. Mild left ventricular diastolic dysfunction. Normal right ventricular structure and function. No significant valvular dysfunction. No pulmonary hypertension. Left Ventricular Wall Motion: Rest Echo Findings All wall segments showed normal motion. Findings: Study Quality * Technically adequate exam. ECG Findings * Normal sinus rhythm. Left Ventricle * LVEF 60-65%. * Normal LV chamber size, wall thickness and function. * Mild left ventricular diastolic dysfunction. * No LVOT obstruction. Right Ventricle * Normal right ventricular structure and function. Left Atrium * Normal left atrial size. Right Atrium * Normal right atrial size. Aortic Valve * No aortic regurgitation. * Aortic valve not well visualized. * No aortic stenosis. Mitral Valve * Normal mitral valve structure. * No mitral stenosis. * Trace mitral regurgitation. Tricuspid Valve * Tricuspid valve not well visualized. * Estimated RA pressure is 3 mmHg. Pulmonic Valve * Pulmonic valve is not well visualized. * No pulmonic stenosis. * No pulmonic regurgitation. Pulmonary Artery * Pulmonary artery not well visualized. Aorta * Normally sized aortic root. Pericardium * There is no pericardial effusion present. Interatrial Septum * No evidence of PFO by color Doppler. IVC * Normal IVC dimensions and inspiratory collapse. Abdomen Ultrasound 05/02/19 20:00 IMPRESSION: Fatty infiltration of the liver. D/ / Bryan Oropeza MD / Bryan Oropeza MD Interpreting Provider: Bryan Oropeza MD Chest X-Ray 05/03/19 06:00 IMPRESSION: No residual pneumothorax. D/ / Beatriz Dee MD / Beatriz Dee MD Interpreting Provider: Beatriz Dee MD Consult Discharge Plan - Plan Referrals: Vane Clemons, DETECTIVE [Primary Care Provider] -
--- NOTE | 2019-05-03 09:55 | Neurology Progress Note ---
<Rocky Barillas J - Last Filed: 05/03/19 09:52> Date of Encounter: 05/03/19 Time of Encounter: 09:52 Assessment and Plan (1) Alcohol abuse Current Visit: Yes Status: Acute (2) Fall Current Visit: Yes Status: Acute Qualifiers: Encounter type: initial encounter Qualified Code(s): W19.XXXA - Unspecified fall, initial encounter (3) Syncope Current Visit: Yes Status: Acute Neurologically she is intact without any focal findings on exam She appears to be in early withdrawal with tremors, confusion and inattention Last drink was approximately 48 hours ago; CIWA implemented In regards to syncope query seizures we feel that her LOC was most likely the result of alcohol intoxication nevertheless an EEG is pending to r/o seizures; c/w seizure precautions in the meantime; no need for antiepileptic drugs Syncope w/u; echo pending read; Carotid duplex with non-stenotic plaque b/l If EEG is unremarkable I anticipate signing off Subjective Principal diagnosis: syncope query seizures Interval history: Seen in f/u with concerns for syncope query seizures. She had an episode of loss of consciousness with urinary and stool incontinence. Neurology has been consulted for additional recommendations. EEG is ordered and pending completion. Denies any return of syncope or seizure-like activity overnight. Today she is neurologically intact but is still in early withdrawal with tremors, confusion and inattention. She denies any concerns at this time. Objective - Constitutional Vitals: Temp Pulse Resp BP Pulse Ox 97.9 F 98 16 117/99 97 05/03/19 07:41 05/03/19 07:41 05/03/19 07:41 05/03/19 07:41 05/03/19 03:48 Exam: Examination: General Examination: *CONSTITUTIONAL: Alert to person and place, agitated and confused otherwise *GENERAL APPEARANCE OF PATIENT appears healthy and well groomed *EYES: pupils equal, round, reactive to light and accommodation, conjunctiva clear without masses or ulcerations, fundi normal. *CARDIOVASCULAR: RRR, no peripheral edema, distal temperature normal, dorsalis pedis pulses normal. Refer to vital signs * MUSCULOSKELETAL: *GAIT AND STATION: deferred *ASSESSMENT OF MUSCLE STRENGTH IN THE UPPER AND LOWER EXTREMITIES bilateral deltoid, bicep, tricep, dredge pipe operator strength, hip flexors ,anterior tibialis, dorsoflexion of the foot /5 *MUSCLE TONE IN THE UPPER AND LOWER EXTREMITIES normal. No abnormal movements, fasciculations or atrophy identified. Neurological: *ORIENTATION to person,and place *LANGUAGE AND FUNCTION no significant aphasia or dysarthia was noted. *ATTENTION AND CONCENTRATION are abnormal; easily distracted *LANGUAGE FUNCTION no significant aphasia or dysarthia was noted. *FUND OF KNOWLEDGE aware of current events, past history, vocabulary *MENTAL attention span and concentration abnormal. Episodic inattention. Requires redirection *CN II optic fundi were normal, no papilledema noted. *CN III,IV, PERRLA extraocular eye movements were full, no nystagmus and no ptosis noted. *CN V shows normal sensation and jaw opens symmetrically. *CN VII shows normal facial movement symmetrically, upper and lower bilaterally. *CN VIII shows no significant hearing loss on exam *CN IX-Xpalate elevated symmetrically *CN XI normal strength in the sternocleidomastoid muscles, symmetrical shoulder shrugging. *CN XII tongue protruded in the midline, with normal strength and movement. *SENSORY EXAMINATION light touch intact *REFLEXES: deep tendon reflexes were normal and symmetrical , grade 2/4 diffusely, no pathological reflexes were noted. *CEREBELLAR TESTING normal finger to nose, heel/knee/parson *PAIN LEVEL 0/10 Results - Laboratory Findings CBC and BMP: 05/03/19 04:49 05/03/19 04:49 Abnormal lab findings: Abnormal lab results Plt Count 67 K/mcL (140-400) L 05/03/19 04:49 Platelet Estimate Decreased (Normal) L 05/01/19 12:25 Immature Plt Fraction 9.8 % (1.1-6.1) H 05/03/19 04:49 PT 12.3 Seconds (9.4-12.1) H 05/01/19 17:01 Sodium 134 mEq/L (136-145) L 05/03/19 04:49 Potassium 3.1 mEq/L (3.5-5.1) L 05/03/19 04:49 Chloride 95 mEq/L (98-107) L 05/03/19 04:49 Carbon Dioxide 21 mEq/L (23-29) L 05/01/19 12:25 BUN 4 mg/dL (6-20) L 05/03/19 04:49 Glucose 108 mg/dL (70-105) H 05/01/19 12:25 Calculated Osmolality 275 (280-300) L 05/03/19 04:49 Total Bilirubin 1.1 mg/dL (0.3-1.0) H 05/03/19 04:49 Direct Bilirubin 0.4 mg/dL (0.0-0.2) H 05/02/19 11:10 AST 41 Units/L (13-39) H 05/03/19 04:49 Creatine Kinase 579 Units/L (30-223) H 05/03/19 04:49 Urine Clarity Cloudy (Clear) A 05/01/19 12:56 Ur Specific [place] 1.026 (1.010-1.025) H 05/01/19 12:56 Urine Protein 100 mg/dL (Neg-Trace) H 05/01/19 12:56 Urine Ketones >=160 mg/dL (Negative) H 05/01/19 12:56 Urine Blood Trace (Negative) H 05/01/19 12:56 Urine Bilirubin Small (Negative) H 05/01/19 12:56 Ur Leukocyte Esterase Trace (Negative) H 05/01/19 12:56 Urine Microscopic WBC 3-5 per hpf (0-3) H 05/01/19 12:56 Ur Squamous Epith Cells Many per lpf (None-Few) H 05/01/19 12:56 Ur Culture Indicated? YES (NO) A 05/01/19 12:56 Ethyl Alcohol 58 mg/dL (Less than 10) H 05/01/19 17:01 Consult Discharge Plan - Plan Referrals: Vane Clemons CNP [Primary Care Provider] - <Ousmane Mccollum - Last Filed: 05/03/19 19:09> Date of Encounter: 05/03/19 Assessment and Plan (1) Fall Current Visit: Yes Status: Acute Qualifiers: Encounter type: initial encounter Qualified Code(s): W19.XXXA - Unspecified fall, initial encounter (2) Syncope Current Visit: Yes Status: Acute I have personally performed a [id number] assessment of the patient and have reviewed the PA/BUSINESS RELATIONS MANAGER note. My impressions are as follows: I agree with the assessment and plan as documented above. EEG was negative for seizure activity. At this juncture there is no evidence of a primary neurologic problem here. It seems that it is all due to the complications of ethanol use/abuse. We will reevaluate her at your request. Subjective Interval history: The chart was reviewed reviewed, patient was seen and examined. Case was discussed with the GRINDER SET UP OPERATOR SURFACE. I agree with his documentation of the history of present illness as above. EEG has been completed which I read myself, the study was normal. Carotid Doppler studies as well as echocardiogram have been normal as well. Patient does seem a bit more coherent today but is still somewhat somnolent. She answers questions, follows commands appropriately. Objective - Constitutional Vitals: Temp Pulse Resp BP Pulse Ox 98.1 F 102 16 134/94 97 05/03/19 17:29 05/03/19 17:29 05/03/19 17:29 05/03/19 17:29 05/03/19 03:48 Exam: I have personally performed a [id number] assessment of the patient and have reviewed the PA/BUSINESS RELATIONS MANAGER note. My impressions are as follows: The patient was not agitated today and more cooperative with answering questions. She does seem to be still a bit groggy, however she is alert and oriented to person place and time. Otherwise I agree with the neurologic examination as documented above. Results - Laboratory Findings CBC and BMP: 05/03/19 04:49 05/03/19 04:49 Abnormal lab findings: Abnormal lab results Plt Count 67 K/mcL (140-400) L 05/03/19 04:49 Platelet Estimate Decreased (Normal) L 05/01/19 12:25 Immature Plt Fraction 9.8 % (1.1-6.1) H 05/03/19 04:49 PT 12.3 Seconds (9.4-12.1) H 05/01/19 17:01 Sodium 134 mEq/L (136-145) L 05/03/19 04:49 Potassium 3.1 mEq/L (3.5-5.1) L 05/03/19 04:49 Chloride 95 mEq/L (98-107) L 05/03/19 04:49 Carbon Dioxide 21 mEq/L (23-29) L 05/01/19 12:25 BUN 4 mg/dL (6-20) L 05/03/19 04:49 Glucose 108 mg/dL (70-105) H 05/01/19 12:25 Calculated Osmolality 275 (280-300) L 05/03/19 04:49 Total Bilirubin 1.1 mg/dL (0.3-1.0) H 05/03/19 04:49 Direct Bilirubin 0.4 mg/dL (0.0-0.2) H 05/02/19 11:10 AST 41 Units/L (13-39) H 05/03/19 04:49 Creatine Kinase 579 Units/L (30-223) H 05/03/19 04:49 Urine Clarity Cloudy (Clear) A 05/01/19 12:56 Ur Specific [place] 1.026 (1.010-1.025) H 05/01/19 12:56 Urine Protein 100 mg/dL (Neg-Trace) H 05/01/19 12:56 Urine Ketones >=160 mg/dL (Negative) H 05/01/19 12:56 Urine Blood Trace (Negative) H 05/01/19 12:56 Urine Bilirubin Small (Negative) H 05/01/19 12:56 Ur Leukocyte Esterase Trace (Negative) H 05/01/19 12:56 Urine Microscopic WBC 3-5 per hpf (0-3) H 05/01/19 12:56 Ur Squamous Epith Cells Many per lpf (None-Few) H 05/01/19 12:56 Ur Culture Indicated? YES (NO) A 05/01/19 12:56 Ethyl Alcohol 58 mg/dL (Less than 10) H 05/01/19 17:01
[2019-05-03] MEDS: 0.9 % Sodium Chloride 1,000 ML IVC SCH (10:27)
[2019-05-03] MEDS: *HR* FentaNYL (PF) 100 MCG/2 ML VIAL IVP PRN (12:03)
--- NOTE | 2019-05-03 12:36 | EEG/EMG/Oth Biometrics Report ---
EEG Procedure Report Date of procedure: 05/03/19 EEG Procedure: Routine EEG Procedure Note: This report of a 21 channel bipolar and referential montage EEG. A posterior dominant rhythm of mixed alpha and beta frequencies are identified symmetrically in the posterior head regions. Beta frequencies. They are bifrontally throughout much of the recording during wakefulness. This rhythm reveals throughout much of the recording. Hyperventilation is not performed during the recording. Periods of stage II sleep are identified as reference by dropout of the posterior dominant rhythm and emergence of vertex activity K complexes and sleep spindles. Photostimulation is performed and does not produce a driving response. The EKG rhythm strip reveals sinus tachycardia at 108 bpm. Impressions: This EEG recording is within normal limits. There is no evidence of epileptiform activity or encephalopathy identified during the recording. Comment: Beta frequencies are recognized as a normal variant, however may also be reflective of a host of metabolic conditions, anxiety and medication effect. Sinus tachycardia at 108 bpm is also present. Please correlate clinically.
[2019-05-04] MEDS: 0.9 % Sodium Chloride 1,000 ML IVC SCH ×2 (00:25→13:26)
[2019-05-04 04:02] LABS: Hemoglobin 11.4 g/dL (11.5-15.4); Mean Corpuscular Volume 92.3 fL (83.0-100.0)
[2019-05-04 04:04] LABS: Hematocrit 34.8 % (35.3-44.9); Immature Platelets 8.2 % (1.1-6.1); Mean Corpuscular HGB Conc 32.8 g/dL (31.6-35.5); Mean Corpuscular Hemoglobin 30.2 pg (28.0-33.3); Mean Platelet Volume 10.8 fL (9.4-12.4); Red Blood Count 3.77 M/mcL (3.82-4.97); Red Cell Distribution Width 13.5 % (11.5-14.5); White Blood Count 4.8 K/mcL (4.3-11.1)
[2019-05-04 04:23] LABS: Alanine Aminotransferase 17 Units/L (7-52); Albumin 3.1 g/dL (3.5-5.7); Albumin/Globulin Ratio 1.2 (1.1-2.2); Alkaline Phosphatase 62 Units/L (34-104); Aspartate Amino Transferase 30 Units/L (13-39); BUN/Creatinine Ratio 6 (6-26); Bilirubin,Total 0.9 mg/dL (0.3-1.0); Blood Urea Nitrogen 3 mg/dL (6-20); Calcium 8.6 mg/dL (8.6-10.3); Carbon Dioxide 23 mEq/L (23-29); Chloride 100 mEq/L (98-107); Globulin 2.6 g/dL (2.4-3.5); Glucose 85 mg/dL (70-105); Magnesium 1.6 mg/dL (1.6-2.6); Osmolality,Calculated 274 (280-300); Phosphorous 3.6 mg/dL (2.7-4.5); Potassium 3.2 mEq/L (3.5-5.1); Sodium 134 mEq/L (136-145); Total Protein 5.7 g/dL (6.4-8.9); eGFR For African Americans > 60 (> 60); eGFR For Non-African Americans > 60 (> 60)
[2019-05-04] MEDS: *HR* FentaNYL (PF) 100 MCG/2 ML VIAL IVP PRN ×2 (04:25→13:27)
[2019-05-04] MEDS ORDERED: Potassium Chloride 40 MEQ, Lidocaine 1% 2 ML in D5% in Water 500 ML IVPB ONE (08:41)
[2019-05-04] MEDS: Vitamin B Complex/Vit C/Vit E 1 EACH TABLET PO SCH (08:47)
[2019-05-04] MEDS: Folic Acid 1 MG TABLET PO SCH (08:47)
[2019-05-04] MEDS: Thiamine (B-1) 100 MG TABLET PO SCH (08:47)
--- NOTE | 2019-05-04 09:05 | Cardiothoracic Progress Note ---
Date of Encounter: 05/04/19 Time of Encounter: 09:04 - Assessment and plan (1) Pneumothorax on right Current Visit: Yes Status: Acute The chest tube was removed. We will check a stat portable chest x-ray. - Subjective Interval history: The patient is more alert and oriented. Vital Signs, Last 4 Hours Temp Pulse Resp BP 05/04/19 08:12 96.7 F L 98 16 141/90 05/04/19 07:21 98 F 131/89 Oxgyen Flow Rate Oxygen Flow Rate (LPM) 15 Clinical Data, last 8 Hours Output, Chest Tube Drainage 10 Amount [Right Anterior Chest # 1] Output, Urine Amount 400 Weight 05/02/19 05/03/19 05/04/19 23:59 23:59 23:59 Weight 54.9 kg 54.5 kg Lungs are clear to percussion and auscultation. The chest tube has minimal drainage and no air leak. - Labs 05/04/19 03:21 05/04/19 03:21 Lab Results, Last 24 hours 05/04/19 05/04/19 03:21 03:21 WBC 4.8 Hgb 11.4 L Hct 34.8 L Plt Count 79 L Sodium 134 L Potassium 3.2 L Chloride 100 Carbon Dioxide 23 BUN 3 L Creatinine 0.50 L Glucose 85 Calcium 8.6 Magnesium 1.6 Total Bilirubin 0.9 AST 30 ALT 17 Alkaline Phosphatase 62 Consult Discharge Plan - Plan Referrals: Vane Clemons CNP [Primary Care Provider] -
--- NOTE | 2019-05-04 10:02 | Internal Med Progress Note ---
Hospitalist Progress Note - Encounter Date of Encounter: 05/04/19 Time of Encounter: 10:00 - Subjective Interval History: the patient was seen and examined at bedside. chest tube removed feels right side chest pain at site of chest tube feels weak and unsteady on standing due to alcohol withdrwawl however not requiring iv ativan accoridng to CWIA protocol order PT/OT probably need placement, i think patient unsafe going home due to risk of fall - Exam Vitals: Temp Pulse Resp BP Pulse Ox 96.7 F L 98 16 141/90 94 05/04/19 08:12 05/04/19 08:12 05/04/19 08:12 05/04/19 08:12 05/04/19 05:00 Exam: .Physical examination: Gen.: Patient is alert and oawake, not in respiratory distress , has right chest pain, has hands tremors HEENT: perrla , EOMI, no neck mass, supple neck Heart: S1 and S2 enrike, normal sinus rhythm, no cardiac murmur no gallop rhythm Chest: , bilateral rhonchi , decreased breathing bilaterally chest tube noted Abdomen: Soft nontender nondistended positive bowel sounds, no organomegaly Extremities: No pitting edema, peripheral pulses palpable, no cyanosis tenderness Neuro: Able to move all 4 limbs, DVT Prophylaxis: scd - Summary of Assessment and Plan Summary of Assessment and Plan: (1) Fall Current Visit: Yes Status: Acute Assessment and plan: Patient hit head and had LOC. alcohol intoxication is likely cause of fall and LOC CT head was negative for any fracture or bleed. EEG negative, echo carotid Doppler unremarkable , no stenotic plaque echo show ef 60% unremarkable patient at risk of fall due to alcohol withdrawal order pt/ot need placement Qualifiers: Encounter type: initial encounter Qualified Code(s): W19.XXXA - Unspecified fall, initial encounter (2) Pneumothorax on right Current Visit: Yes Status: Acute Assessment and plan: Secondary to fall. Chest tube placed in ED. Patient hemodynamically stable. Cardiothoracic Surgery following. s/p removal of chest tube follow CXR eveal resolving pneumothorax (3) Alcohol abuse Current Visit: Yes Status: Acute Assessment and plan: Patient is very high risk of withdrawal. continue on CIWA protocol with Librium taper. on thiamin and folic acid (4) Elevated CPK Current Visit: Yes Status: Acute Assessment and plan: Secondary to fall. check another CK today on iv fluid (5) Hyponatremia Current Visit: Yes Status: Acute Assessment and plan: Likely chronic based on history. serum Na up to 134 from 130 due to alcohol consumption (6) Thrombocytopenia Current Visit: Yes Status: chronic Assessment and plan: Likely due to alcohol consumption US abdomen show fatty liver check hepatic panel inr 1.1 platelets count [id number] (7) DVT prophylaxis Current Visit: Yes Status: Acute Assessment and plan: scd. Patient is fall risk with thrombocytopenia and a laceration on her scalp from fall, and a chest tube inserted for PTX. avoid heparin products at this time. - Time Spent with Patient Total time spent is greater than 50% in coordination of care (as documented) at patient's floor/unit and/or counseling patient: Internal Medicine: Result - Labs CBC & Chem 7: 05/04/19 03:21 05/04/19 03:21 Labs: Short CBC 05/04/19 Range/Units 03:21 WBC 4.8 (4.3-11.1) K/mcL Hgb 11.4 L (11.5-15.4) g/dL Hct 34.8 L (35.3-44.9) % Plt Count 79 L (140-400) K/mcL BMP 05/04/19 03:21 Sodium 134 L Potassium 3.2 L Chloride 100 Carbon Dioxide 23 BUN 3 L Creatinine 0.50 L Glucose 85 Calcium 8.6 Liver Function 05/04/19 Range/Units 03:21 Total Bilirubin 0.9 (0.3-1.0) mg/dL AST 30 (13-39) Units/L ALT 17 (7-52) Units/L Alkaline Phosphatase 62 (34-104) Units/L Albumin 3.1 L (3.5-5.7) g/dL - ABG Interpretation ABG results: PT/INR, D-dimer PT 12.3 Seconds (9.4-12.1) H 05/01/19 17:01 - Impressions Impressions Chest X-Ray 05/04/19 00:01 IMPRESSION: No measurable pneumothorax. D/ / Malvin Laureano / Malvin Laureano Interpreting Provider: Malvin Laureano Chest X-Ray 05/04/19 09:06 IMPRESSION: Interval removal of right-sided chest tube. No residual pneumothorax. D/ / 05/04/2019 09:56:33 Shona Dowd MD / yue Interpreting Provider: Shona Dowd MD Consult Discharge Plan - Plan Referrals: Vane Clemons CNP [Primary Care Provider] -
[2019-05-04] MEDS ORDERED: *HR* LORazepam 2 MG/ML VIAL IVP PRN (14:11)
[2019-05-04 18:04] LABS: CK-BB (CK isoenzymes) 0 % (0-0); CK-MB (CK isoenzymes) 0 % (0-4); CK-MM (CK-isoenzymes) 100 % (96-100)
[2019-05-05] MEDS: 0.9 % Sodium Chloride 1,000 ML IVC SCH (02:32)
[2019-05-05 06:01] LABS: Hematocrit 39.5 % (35.3-44.9); Mean Corpuscular HGB Conc 32.9 g/dL (31.6-35.5); Mean Corpuscular Hemoglobin 30.7 pg (28.0-33.3); Mean Corpuscular Volume 93.2 fL (83.0-100.0); Mean Platelet Volume 10.3 fL (9.4-12.4); Platelet Count 123 K/mcL (140-400); Red Blood Count 4.24 M/mcL (3.82-4.97); Red Cell Distribution Width 13.6 % (11.5-14.5); White Blood Count 4.3 K/mcL (4.3-11.1)
[2019-05-05 06:17] LABS: Alanine Aminotransferase 22 Units/L (7-52); Albumin 3.7 g/dL (3.5-5.7); Albumin/Globulin Ratio 1.1 (1.1-2.2); Alkaline Phosphatase 77 Units/L (34-104); Aspartate Amino Transferase 35 Units/L (13-39); BUN/Creatinine Ratio 4 (6-26); Blood Urea Nitrogen 2 mg/dL (6-20); Calcium 9.4 mg/dL (8.6-10.3); Carbon Dioxide 23 mEq/L (23-29); Chloride 101 mEq/L (98-107); Globulin 3.4 g/dL (2.4-3.5); Glucose 147 mg/dL (70-105); Magnesium 1.6 mg/dL (1.6-2.6); Osmolality,Calculated 279 (280-300); Potassium 3.1 mEq/L (3.5-5.1); Sodium 135 mEq/L (136-145); Total Protein 7.1 g/dL (6.4-8.9); eGFR For African Americans > 60 (> 60); eGFR For Non-African Americans > 60 (> 60)
[2019-05-05] MEDS: Thiamine (B-1) 100 MG TABLET PO SCH (08:53)
[2019-05-05] MEDS: Folic Acid 1 MG TABLET PO SCH (08:53)
[2019-05-05] MEDS: Vitamin B Complex/Vit C/Vit E 1 EACH TABLET PO SCH (08:53)
--- NOTE | 2019-05-05 10:28 | Cardiothoracic Progress Note ---
Date of Encounter: 05/05/19 Time of Encounter: 10:26 - Assessment and plan (1) Pneumothorax on right Current Visit: Yes Status: Acute The patient is okay for discharge from my standpoint. I will sign off. Please call if needed. Follow-up after discharge can be done through her primary care physician's office. - Subjective Interval history: The patient has no complaints. Vital Signs, Last 4 Hours Temp Pulse Resp BP 05/05/19 06:51 97.6 F 96 14 143/96 Oxgyen Flow Rate Oxygen Flow Rate (LPM) 0 Weight 05/03/19 05/04/19 05/05/19 23:59 23:59 23:59 Weight 54.5 kg Lungs are clear to percussion and auscultation. 2 chest x-rays after chest tube removal revealed no pneumothorax. - Labs 05/05/19 05:28 05/05/19 05:28 Lab Results, Last 24 hours 05/05/19 05/05/19 05:28 05:28 WBC 4.3 Hgb 13.0 D Hct 39.5 Plt Count 123 L D Sodium 135 L Potassium 3.1 L Chloride 101 Carbon Dioxide 23 BUN 2 L Creatinine 0.57 L Glucose 147 H Calcium 9.4 Magnesium 1.6 Total Bilirubin 1.0 AST 35 ALT 22 Alkaline Phosphatase 77 Consult Discharge Plan - Plan Referrals: Vane Clemons CNP [Primary Care Provider] -
[2019-05-05] MEDS ORDERED: Potassium Chloride Elixir 20 MEQ/15 ML UDC PO ONE (11:50)
--- NOTE | 2019-05-05 11:53 | Internal Med Progress Note ---
Hospitalist Progress Note - Encounter Date of Encounter: 05/05/19 Time of Encounter: 11:51 - Subjective Interval History: the patient was seen and examined at bedside patient feels weak pt/ot recommend SNF patient at risk of fall due to acohol withdrawal i disussed in length with patient and her boyfriend, seems understanding and agreeable to plan replace hypokalema and order another pt/ot - Exam Vitals: Temp Pulse Resp BP Pulse Ox 97.6 F 96 14 143/96 95 05/05/19 06:51 05/05/19 06:51 05/05/19 06:51 05/05/19 06:51 05/04/19 23:00 Exam: .Physical examination: Gen.: Patient is alert and awake, not in respiratory distress , has right chest pain, has hands tremors HEENT: perrla , EOMI, no neck mass, supple neck Heart: S1 and S2 enrike, normal sinus rhythm, no cardiac murmur no gallop rhythm Chest: , bilateral rhonchi , decreased breathing bilaterally chest tube noted Abdomen: Soft nontender nondistended positive bowel sounds, no organomegaly Extremities: No pitting edema, peripheral pulses palpable, no cyanosis tenderness Neuro: Able to move all 4 limbs, DVT Prophylaxis: scd - Summary of Assessment and Plan Summary of Assessment and Plan: (1) Fall Current Visit: Yes Status: Acute Assessment and plan: Patient hit head and had LOC. alcohol intoxication is likely cause of fall and LOC CT head was negative for any fracture or bleed. EEG negative, echo carotid Doppler unremarkable , no stenotic plaque echo show ef 60% unremarkable patient at risk of fall due to alcohol withdrawal order pt/ot need placement Qualifiers: Encounter type: initial encounter Qualified Code(s): W19.XXXA - Unspecified fall, initial encounter (2) Pneumothorax on right Current Visit: Yes Status: Acute Assessment and plan: Secondary to fall. Chest tube placed in ED. Patient hemodynamically stable. Cardiothoracic Surgery following. s/p removal of chest tube follow CXR eveal resolving pneumothorax (3) Alcohol abuse Current Visit: Yes Status: Acute Assessment and plan: Patient is very high risk of withdrawal. continue on CIWA protocol with Librium taper. on thiamin and folic acid (4) Elevated CPK Current Visit: Yes Status: Acute Assessment and plan: Secondary to fall. resolving d/c iv fluid (5) Hyponatremia Current Visit: Yes Status: Acute Assessment and plan: Likely chronic based on history. serum Na up to 135 from 130 due to alcohol consumption Hypokalemia: on replacement (6) Thrombocytopenia Current Visit: Yes Status: chronic Assessment and plan: Likely due to alcohol consumption US abdomen show fatty liver check hepatic panel inr 1.1 platelets count 165160 (7) DVT prophylaxis Current Visit: Yes Status: Acute Assessment and plan: scd. Patient is fall risk with thrombocytopenia and a laceration on her scalp from fall, and a chest tube inserted for PTX. avoid heparin products at this time. - Time Spent with Patient Total time spent is greater than 50% in coordination of care (as documented) at patient's floor/unit and/or counseling patient: Internal Medicine: Result - Labs CBC & Chem 7: 05/05/19 05:28 05/05/19 05:28 Labs: Short CBC 05/05/19 Range/Units 05:28 WBC 4.3 (4.3-11.1) K/mcL Hgb 13.0 D (11.5-15.4) g/dL Hct 39.5 (35.3-44.9) % Plt Count 123 L D (140-400) K/mcL BMP 05/05/19 05:28 Sodium 135 L Potassium 3.1 L Chloride 101 Carbon Dioxide 23 BUN 2 L Creatinine 0.57 L Glucose 147 H Calcium 9.4 Liver Function 05/05/19 Range/Units 05:28 Total Bilirubin 1.0 (0.3-1.0) mg/dL AST 35 (13-39) Units/L ALT 22 (7-52) Units/L Alkaline Phosphatase 77 (34-104) Units/L Albumin 3.7 (3.5-5.7) g/dL - ABG Interpretation ABG results: PT/INR, D-dimer PT 12.3 Seconds (9.4-12.1) H 05/01/19 17:01 - Impressions Impressions Chest X-Ray 05/04/19 09:06 IMPRESSION: Interval removal of right-sided chest tube. No residual pneumothorax. D/ / 05/04/2019 09:56:33 Shona Dowd MD / yue Interpreting Provider: Shona Dowd MD Chest X-Ray 05/05/19 00:01 IMPRESSION: No pneumothorax. D/ / Corinne Nuñez MD / Corinne Nuñez MD Interpreting Provider: Corinne Nuñez MD Consult Discharge Plan - Plan Referrals: Vane Clemons CNP [Primary Care Provider] -
[2019-05-05 13:16] LABS: Estimated Average Glucose 117 mg/dl
--- NOTE | 2019-05-05 13:25 | Discharge Summary ---
Orders not resulted at time of discharge: Pending orders 05/02/19 03:32 [facility] [employer] AM 0400 Date of Encounter: 05/05/19 Time of Encounter: 13:23 - Discharge Diagnosis (1) Fall Priority: Primary Status: Acute Assessment and Plan: (1) Fall Current Visit: Yes Status: Acute Assessment and plan: Patient hit head and had LOC. alcohol intoxication is likely cause of fall and LOC CT head was negative for any fracture or bleed. EEG negative, echo carotid Doppler unremarkable , no stenotic plaque echo show ef 60% unremarkable patient at risk of fall due to alcohol withdrawal order pt/ot need placement Qualifiers: Encounter type: initial encounter Qualified Code(s): W19.XXXA - Unspecified fall, initial encounter (2) Pneumothorax on right Current Visit: Yes Status: Acute Assessment and plan: Secondary to fall. Chest tube placed in ED. Patient hemodynamically stable. Cardiothoracic Surgery following. s/p removal of chest tube follow CXR eveal resolving pneumothorax (3) Alcohol abuse Current Visit: Yes Status: Acute Assessment and plan: Patient is very high risk of withdrawal. continue on CIWA protocol with Librium taper. on thiamin and folic acid (4) Elevated CPK Current Visit: Yes Status: Acute Assessment and plan: Secondary to fall. resolving d/c iv fluid (5) Hyponatremia Current Visit: Yes Status: Acute Assessment and plan: Likely chronic based on history. serum Na up to 135 from 130 due to alcohol consumption Hypokalemia: on replacement (6) Thrombocytopenia Current Visit: Yes Status: chronic Assessment and plan: Likely due to alcohol consumption US abdomen show fatty liver check hepatic panel inr 1.1 platelets count 151185 (7) DVT prophylaxis Current Visit: Yes Status: Acute Assessment and plan: scd. Patient is fall risk with thrombocytopenia and a laceration on her scalp from fall, and a chest tube inserted for PTX. avoid heparin products at this time. Qualifiers: Encounter type: initial encounter Qualified Code(s): W19.XXXA - Unspecified fall, initial encounter Hospital course: Ms. Mariano is a 43 year old female with hx of alcohol abuse was admitted due to fall 2/2 to LOS due to alcohol intoxication, was found to have rright rib fracture with right pneumothorax , chest tube placed by CT surgery. patient left AMA, i explained to patient risk of leaving AMA. - Time Spent with Patient Total time spent providing and/or coordinating discharge services: Time spent: Greater than 30 minutes - Discharge Medications Prescriptions: No Action No Known Home Drugs 1 each .ROUTE AD each Home Medications: No Known Home Drugs 05/01/19 [History] Allergies/Adverse Reactions: Allergy/AdvReac Type Severity Reaction Status Date / Time No Known Allergies Allergy Verified 05/02/19 14:17 Date of admission: 05/01/19 16:32 Primary care physician: Vane Clemons Consults: 05/01/19 15:43 Consult to Cardiothoracic Surgery [CONS] Stat Consulting Provider: Cardiothoracic Surgery Dinah Reason for Consult: pneumothorax Call Completed: Yes 05/01/19 18:38 Consult to Microbiological Lab Technician [CONS] Routine Reason for SW Consult: Alcohol abuse 05/02/19 10:47 Consult to Neurology [CONS] Routine Consulting Provider: Neurology [facility] Reason for Consult: LOC possible seizure Call Completed: No 05/03/19 10:08 Consult to Interpret Exam [CONS] Routine Consulting Provider: Ousmane Mccollum Consult to Interpret Exam: Interpret EEG 05/04/19 09:59 Consult to Physical Therapy [CONS] Routine Comment: Evaluate, develop and implement POC Reason for Consult: G weakness Does patient have active BEDREST order?: No Is patient medically & hemodynamically stable?: Yes Patient assessed for mobility or mobilized this visit?: Yes 05/05/19 09:28 Consult to Speech Therapy [CONS] Routine Comment: Evaluate, develop and implement POC Reason for Consult: Pt states she feels like she is choking at times when she eats. Call Completed: No - Constitutional Vitals: Temp Pulse Resp BP Pulse Ox 97.6 F 96 14 143/96 95 05/05/19 06:51 05/05/19 06:51 05/05/19 06:51 05/05/19 06:51 05/04/19 23:00 General appearance: Present: A&O X 3, no acute distress, underweight, answers questions appropriately Exam: .Physical examination: Gen.: Patient is alert and awake, not in respiratory distress , has right chest pain, has hands tremors HEENT: perrla , EOMI, no neck mass, supple neck Heart: S1 and S2 enrike, normal sinus rhythm, no cardiac murmur no gallop rhythm Chest: , bilateral rhonchi , decreased breathing bilaterally chest tube noted Abdomen: Soft nontender nondistended positive bowel sounds, no organomegaly Extremities: No pitting edema, peripheral pulses palpable, no cyanosis tenderness Neuro: Able to move all 4 limbs, - Patient Status Disposition: Left Against Medical Advice Condition: Fair - Discharge Instructions Instructions: Fall Prevention (DC) Follow Up With: Vane Clemons CNP [Primary Care Provider] -
[2019-05-05 14:31] LABS: CK Total (Ck Isoenzymes) 628 U/L (20-180)
[2019-05-05 17:14] VITALS: BP 96/56
== END 2019-05-05 13:10 | disposition left against medical advice (07) | DRG 135 ==
LOC: EMEROOARM 12:08 → 2NENU 16:32
PROVIDERS: ADMIT Student in an Organized Health Care Education/Training Program; ATTEND Student in an Organized Health Care Education/Training Program

== ENCOUNTER 2019-08-03 01:13 | Observation (INO) ==
[2019-08-03] MEDS ORDERED: Thiamine (B-1) 100 MG, Folic Acid 1 MG, MVI, adult with vitamin K 10 ML in 0.9 % Sodi... IVPB STA (01:24)
[2019-08-03] MEDS ORDERED: *HR* LORazepam 2 MG/ML VIAL IVP PRN ×2 (01:24)
[2019-08-03] MEDS ORDERED: 0.9 % Sodium Chloride 1,000 ML IVC ONE ×4 (01:25→11:25)
[2019-08-03] MEDS ORDERED: *HR* LORazepam 2 MG/ML VIAL IVP ONE (01:26)
[2019-08-03 03:11] LABS: INR 1.1; Prothrombin Time 12.3 Seconds (9.4-12.1)
[2019-08-03 03:24] LABS: Ethanol < 10 mg/dL (Less than 10); Lipase 23 Units/L (11-82)
[2019-08-03 04:20] LABS: Mean Corpuscular HGB Conc 33.3 g/dL (31.6-35.5)
[2019-08-03 04:22] LABS: Basophils # 0.1 K/mcL (0.0-0.2); Basophils % 0.7 %; Hemoglobin 13.3 g/dL (11.5-15.4); Immature Granulocytes % 0.2 % (0-4); Immature Platelets 7.1 % (1.1-6.1); Lymphocytes # 0.6 K/mcL (0.6-4.6); Lymphocytes % 7.2 %; Mean Corpuscular Hemoglobin 28.9 pg (28.0-33.3); Mean Platelet Volume 10.6 fL (9.4-12.4); Monocytes # 0.6 K/mcL (0.0-1.3); Monocytes % 6.3 %; Neutrophils # 7.5 K/mcL (1.6-8.9); Platelet Count 81 K/mcL (140-400); Segmented Neutrophils % 85.6 %; White Blood Count 8.8 K/mcL (4.3-11.1)
[2019-08-03 04:27] LABS: Bilirubin,Urine Negative (Negative); Blood,Urine Trace (Negative); Clarity,Urine Clear (Clear); Color,Urine Yellow (Yellow); Glucose,Urine (UA) Normal (Normal); Ketones,Urine 40 mg/dL (Negative); Leukocyte Esterase,Urine Negative (Negative); Nitrite,Urine Negative (Negative); PH,Urine 6.5 pH Units (5.0-8.0); Protein,Urine Negative (Neg-Trace); Urobilinogen,Urine Normal (Normal)
[2019-08-03 04:28] LABS: Alanine Aminotransferase 29 Units/L (7-52); Albumin 4.4 g/dL (3.5-5.7); Albumin/Globulin Ratio 1.2 (1.1-2.2); Alkaline Phosphatase 101 Units/L (34-104); Aspartate Amino Transferase 59 Units/L (13-39); BUN/Creatinine Ratio 5 (6-26); Bilirubin,Total 1.1 mg/dL (0.3-1.0); Blood Urea Nitrogen 3 mg/dL (6-20); Calcium 9.6 mg/dL (8.6-10.3); Carbon Dioxide 24 mEq/L (23-29); Chloride 99 mEq/L (98-107); Globulin 3.7 g/dL (2.4-3.5); Glucose 103 mg/dL (70-105); Osmolality,Calculated 281 (280-300); Potassium 3.6 mEq/L (3.5-5.1); Sodium 137 mEq/L (136-145); Total Protein 8.1 g/dL (6.4-8.9); eGFR For African Americans > 60 (> 60); eGFR For Non-African Americans > 60 (> 60)
[2019-08-03 04:30] LABS: Amphetamine Screen,Urine Negative ng/mL (Cutoff=1000); Bacteria,Urine None Seen per hpf (None-Few); Barbiturate Screen,Urine Negative ng/mL (Cutoff=200); Benzodiazepines Screen,Urine Negative ng/mL (Cutoff=200); Cannabinoid Screen,Urine Negative ng/mL (Cutoff = 50); Cocaine Screen,Urine Negative ng/mL (Cutoff= 300); Hyaline Casts,Urine None Seen per lpf (None-Few); Opiate Screen,Urine Negative ng/mL (Cutoff=300); Phencyclidine Screen,Urine Negative ng/mL (Cutoff=25); RBC,Urine 0-3 per hpf (0-3); Squamous Epithelial Cell,Urine Many per lpf (None-Few); WBC,Urine 0-3 per hpf (0-3)
[2019-08-03] MEDS ORDERED: Ondansetron 4 MG/2 ML VIAL IVP ONE (04:43)
[2019-08-03] MEDS: *HR* LORazepam 2 MG/ML VIAL IVP PRN ×3 (05:49→22:29)
[2019-08-03] MEDS ORDERED: Naloxone 0.4 MG/ML INJ IVP PRN (09:50)
[2019-08-03] MEDS ORDERED: *HR* HYDROcodone/Acet 5/325 mg TABLET PO PRN (09:50)
[2019-08-03] MEDS ORDERED: Ondansetron 4 MG/2 ML VIAL IVP PRN (09:50)
[2019-08-03] MEDS ORDERED: Acetaminophen 325 MG TABLET PO PRN (09:50)
[2019-08-03] MEDS ORDERED: Nicotine 2 MG GUM BC PRN (10:38)
[2019-08-03] MEDS ORDERED: Ipratropium/Albuterol Neb 3 ML IH PRN (10:49)
[2019-08-03 10:52] LABS: Magnesium 1.6 mg/dL (1.6-2.6); Troponin I < 0.03 ng/mL (< 0.04)
[2019-08-03] MEDS: Beer can PO SCH ×2 (11:07→17:54)
[2019-08-04 06:15] VITALS: BP 124/84
[2019-08-04 06:25] LABS: Immature Granulocytes % 0.2 % (0-4); Red Cell Distribution Width 15.6 % (11.5-14.5)
[2019-08-04 06:27] LABS: Basophils % 0.9 %; Eosinophils # 0.1 K/mcL (0.0-0.6); Eosinophils % 1.6 %; Hematocrit 37.5 % (35.3-44.9); Hemoglobin 11.9 g/dL (11.5-15.4); Immature Platelets 7.7 % (1.1-6.1); Lymphocytes # 1.8 K/mcL (0.6-4.6); Lymphocytes % 40.6 %; Mean Corpuscular HGB Conc 31.7 g/dL (31.6-35.5); Mean Corpuscular Hemoglobin 28.7 pg (28.0-33.3); Mean Corpuscular Volume 90.4 fL (83.0-100.0); Mean Platelet Volume 10.2 fL (9.4-12.4); Monocytes # 0.5 K/mcL (0.0-1.3); Monocytes % 11.4 %; Platelet Count 64 K/mcL (140-400); Red Blood Count 4.15 M/mcL (3.82-4.97); Segmented Neutrophils % 45.3 %; White Blood Count 4.3 K/mcL (4.3-11.1)
[2019-08-04 06:29] LABS: INR 1.1; Prothrombin Time 12.4 Seconds (9.4-12.1)
[2019-08-04 06:44] LABS: BUN/Creatinine Ratio 5 (6-26); Blood Urea Nitrogen 3 mg/dL (6-20); Calcium 8.7 mg/dL (8.6-10.3); Carbon Dioxide 27 mEq/L (23-29); Chloride 100 mEq/L (98-107); Chol/HDL Ratio 2.4 (0-4.9); Cholesterol 162 mg/dL (< 200); Glucose 79 mg/dL (70-105); HDL Cholesterol 68 mg/dL (40-59); LDL Cholesterol,Calculated 77 mg/dL (0-99); Magnesium 1.8 mg/dL (1.6-2.6); Osmolality,Calculated 279 (280-300); Potassium 2.9 mEq/L (3.5-5.1); Sodium 137 mEq/L (136-145); Triglycerides 87 mg/dL (< 150); eGFR For African Americans > 60 (> 60); eGFR For Non-African Americans > 60 (> 60)
[2019-08-04] MEDS: Beer can PO SCH (06:57)
[2019-08-04] MEDS ORDERED: Thiamine (B-1) 100 MG TABLET PO SCH (09:00)
[2019-08-04] MEDS ORDERED: Folic Acid 1 MG TABLET PO SCH (09:00)
== END 2019-08-04 15:54 | disposition home or self-care (01) ==
LOC: EMEROOARM 01:13 → 3ANU 01:13
PROVIDERS: ADMIT Internal Medicine; ATTEND Internal Medicine

== ENCOUNTER 2019-09-05 05:36 | Observation (INO) ==
[2019-09-05] MEDS ORDERED: 0.9 % Sodium Chloride 1,000 ML IVC ONE ×3 (05:50→11:07)
[2019-09-05] MEDS ORDERED: Ondansetron 4 MG/2 ML VIAL IVP ONE ×2 (05:50→09:15)
[2019-09-05] MEDS ORDERED: Isovue-370 500 ML BOTTLE IVP ONE (05:56)
[2019-09-05 06:01] LABS: Basophils # 0.1 K/mcL (0.0-0.2); Basophils % 0.7 %; Eosinophils % 0.1 %; Hematocrit 40.8 % (35.3-44.9); Hemoglobin 13.5 g/dL (11.5-15.4); Immature Granulocytes % 0.4 % (0-4); Lymphocytes # 1.6 K/mcL (0.6-4.6); Mean Corpuscular HGB Conc 33.1 g/dL (31.6-35.5); Mean Corpuscular Hemoglobin 28.7 pg (28.0-33.3); Mean Corpuscular Volume 86.6 fL (83.0-100.0); Mean Platelet Volume 9.8 fL (9.4-12.4); Monocytes # 0.9 K/mcL (0.0-1.3); Monocytes % 10.5 %; Neutrophils # 5.7 K/mcL (1.6-8.9); Platelet Count 146 K/mcL (140-400); Red Blood Count 4.71 M/mcL (3.82-4.97); Segmented Neutrophils % 69.3 %; White Blood Count 8.2 K/mcL (4.3-11.1)
[2019-09-05 06:19] LABS: Bilirubin,Urine Negative (Negative); Blood,Urine Negative (Negative); Clarity,Urine Cloudy (Clear); Color,Urine Yellow (Yellow); Glucose,Urine (UA) Normal (Normal); Ketones,Urine 80 mg/dL (Negative); Leukocyte Esterase,Urine Negative (Negative); Nitrite,Urine Negative (Negative); Protein,Urine Trace mg/dL (Neg-Trace); Urobilinogen,Urine Normal (Normal)
[2019-09-05 06:21] LABS: Bacteria,Urine None Seen per hpf (None-Few); Hyaline Casts,Urine None Seen per lpf (None-Few); RBC,Urine 0-3 per hpf (0-3); Squamous Epithelial Cell,Urine Many per lpf (None-Few); WBC,Urine 0-3 per hpf (0-3)
[2019-09-05 06:25] LABS: Alanine Aminotransferase 25 Units/L (7-52); Albumin 4.4 g/dL (3.5-5.7); Albumin/Globulin Ratio 1.3 (1.1-2.2); Alkaline Phosphatase 98 Units/L (34-104); Aspartate Amino Transferase 43 Units/L (13-39); BUN/Creatinine Ratio 6 (6-26); Bilirubin,Direct 0.2 mg/dL (0.0-0.2); Bilirubin,Indirect 0.6 mg/dL (0.0-1.0); Bilirubin,Total 0.8 mg/dL (0.3-1.0); Blood Urea Nitrogen 3 mg/dL (6-20); Calcium 9.9 mg/dL (8.6-10.3); Carbon Dioxide 23 mEq/L (23-29); Chloride 95 mEq/L (98-107); Globulin 3.5 g/dL (2.4-3.5); Glucose 112 mg/dL (70-105); Lipase 30 Units/L (11-82); Osmolality,Calculated 275 (280-300); Potassium 3.3 mEq/L (3.5-5.1); Sodium 134 mEq/L (136-145); Total Protein 7.9 g/dL (6.4-8.9); eGFR For African Americans > 60 (> 60); eGFR For Non-African Americans > 60 (> 60)
[2019-09-05 06:32] LABS: Amorphous Sediment,Urine Few (Few)
[2019-09-05] MEDS ORDERED: *HR* LORazepam 1 MG TABLET PO ONE (11:16)
[2019-09-05] MEDS ORDERED: *HR* LORazepam 2 MG/ML VIAL IVP ONE (11:21)
[2019-09-05] MEDS ORDERED: Ondansetron 4 MG/2 ML VIAL IVP PRN (13:40)
[2019-09-05] MEDS ORDERED: Naloxone 0.4 MG/ML INJ IVP PRN (13:40)
[2019-09-05] MEDS ORDERED: Potassium Chloride 20 MEQ, Lidocaine 1% 2 ML in 0.9 % Sodium Chloride 250 ML IVPB ONE (13:52)
[2019-09-05] MEDS ORDERED: D5% in Water 1,000 ML IVC PRN (13:53)
[2019-09-05] MEDS ORDERED: *HR* Dextrose 50 % in Water (Syg) 50 ML SYRINGE IVP PRN (13:53)
[2019-09-05] MEDS ORDERED: Dextrose Gel 15 GM/37.5 ML TUBE PO PRN ×2 (13:53)
[2019-09-05 14:18] LABS: Magnesium 1.4 mg/dL (1.6-2.6)
[2019-09-05 14:23] LABS: Estimated Average Glucose 120 mg/dl
[2019-09-05] MEDS ORDERED: *HR* LORazepam 2 MG/ML VIAL IVP PRN ×3 (14:35)
[2019-09-05] MEDS: Thiamine (B-1) 100 MG TABLET PO SCH (15:07)
[2019-09-05] MEDS: Folic Acid 1 MG TABLET PO SCH (15:08)
[2019-09-05] MEDS: Pantoprazole 40 MG VIAL IVP SCH (15:51)
[2019-09-05] MEDS: 0.9 % Sodium Chloride 1,000 ML IVC SCH (15:51)
[2019-09-05 16:23] LABS: Hepatitis B Surface Antigen Nonreactive (Nonreactive)
[2019-09-05 16:53] LABS: Hepatitis B Core IgM Nonreactive (Nonreactive)
[2019-09-05 16:56] LABS: Hepatitis C Virus Antibody Nonreactive (Nonreactive)
[2019-09-05 16:59] LABS: Hepatitis A Antibody IgM Nonreactive (Nonreactive)
[2019-09-05 17:10] LABS: Bilirubin,Urine Negative (Negative); Blood,Urine Negative (Negative); Clarity,Urine Clear (Clear); Color,Urine Yellow (Yellow); Glucose,Urine (UA) Normal (Normal); Ketones,Urine 15 mg/dL (Negative); Leukocyte Esterase,Urine Negative (Negative); Nitrite,Urine Negative (Negative); PH,Urine 6.5 pH Units (5.0-8.0); Protein,Urine Negative (Neg-Trace); Urobilinogen,Urine Normal (Normal)
[2019-09-05 17:21] LABS: Amphetamine Screen,Urine Negative ng/mL (Cutoff=1000); Barbiturate Screen,Urine Negative ng/mL (Cutoff=200); Benzodiazepines Screen,Urine Negative ng/mL (Cutoff=200); Cannabinoid Screen,Urine Negative ng/mL (Cutoff = 50); Cocaine Screen,Urine Negative ng/mL (Cutoff= 300); Opiate Screen,Urine Negative ng/mL (Cutoff=300); Phencyclidine Screen,Urine Negative ng/mL (Cutoff=25)
[2019-09-05] MEDS: Insulin LISPRO 300 UNITS/3 ML VIAL SQ SCH (18:07)
[2019-09-05] MEDS: Lactobacillus 1 EACH CAP.SPRINK PO SCH (20:30)
[2019-09-06] MEDS: Insulin LISPRO 300 UNITS/3 ML VIAL SQ SCH ×2 (00:17→06:47)
[2019-09-06] MEDS: 0.9 % Sodium Chloride 1,000 ML IVC SCH (05:37)
[2019-09-06 06:10] LABS: Alanine Aminotransferase 18 Units/L (7-52); Albumin 3.7 g/dL (3.5-5.7); Albumin/Globulin Ratio 1.3 (1.1-2.2); Alkaline Phosphatase 77 Units/L (34-104); Aspartate Amino Transferase 30 Units/L (13-39); BUN/Creatinine Ratio 6 (6-26); Bilirubin,Total 0.7 mg/dL (0.3-1.0); Blood Urea Nitrogen 3 mg/dL (6-20); Calcium 8.5 mg/dL (8.6-10.3); Carbon Dioxide 27 mEq/L (23-29); Chloride 99 mEq/L (98-107); Chol/HDL Ratio 3.2 (0-4.9); Cholesterol 159 mg/dL (< 200); Globulin 2.8 g/dL (2.4-3.5); Glucose 80 mg/dL (70-105); HDL Cholesterol 49 mg/dL (40-59); LDL Cholesterol,Calculated 95 mg/dL (0-99); Osmolality,Calculated 280 (280-300); Potassium 3.2 mEq/L (3.5-5.1); Sodium 137 mEq/L (136-145); Total Protein 6.5 g/dL (6.4-8.9); Triglycerides 75 mg/dL (< 150); eGFR For African Americans > 60 (> 60); eGFR For Non-African Americans > 60 (> 60)
[2019-09-06] MEDS: Folic Acid 1 MG TABLET PO SCH (08:51)
[2019-09-06] MEDS: Lactobacillus 1 EACH CAP.SPRINK PO SCH (08:51)
[2019-09-06] MEDS: Thiamine (B-1) 100 MG TABLET PO SCH (08:51)
[2019-09-06] MEDS: Pantoprazole 40 MG VIAL IVP SCH (08:51)
[2019-09-06 11:48] VITALS: BP 148/90
== END 2019-09-06 12:28 | disposition home or self-care (01) ==
LOC: EMEROOARM 05:36 → 2ANU 05:36 → SUATTDRO 14:04 → 2ANU 14:15
PROVIDERS: ADMIT Internal Medicine; ATTEND Family Medicine